=== PATIENT | female | born 1960 | race Caucasian/White ===

== ENCOUNTER 2017-03-28 05:07 | Inpatient (IN) | payer SELFPAY ==
[~2017-03-28] VITALS: Ht 162.6 cm; Wt 99.5 kg
[~2017-03-28 05:07] MED LIST: ANTIVERT25 MG PO; CELEXA40 MG PO; CLARITIN10 MG PO; DARVOCET N 1001 TAB PO; ERY TABS333 MG PO; FLAGYL500 MG PO; LANTUS SOLOS100 U/M1 SC; LISINOPRIL/HCTZ1 TA3 PO; LISINOPRIL10 MG PO; LOMOTIL 0.025 M1 TAB PO; MACROBID100 M1 PO; METFORMIN500 MG PO; MOTRIN800 MG PO; PROTONIX40 MG PO; ZANTAC150 MG; ZOFRAN4 MG PO
[2017-03-28 05:15] VITALS: BP 161/81
[2017-03-28] MEDS ORDERED: SIMVASTATIN40 MG PO (05:24)
[2017-03-28] MEDS ORDERED: NYSTATIN CREAM15 GM T (05:25)
[2017-03-28] MEDS ORDERED: MOBIC15 MG PO (05:26)
[2017-03-28] MEDS ORDERED: VIT C-ROSE HIP500 MG PO (05:27)
[2017-03-28] MEDS ORDERED: CITALOPRAM10 MG PO (05:29)
[2017-03-28] MEDS ORDERED: IBUPROFEN IV (05:31)
[2017-03-28] MEDS ORDERED: NOVOLOG FLEX100 U/ML SC (05:32)
[2017-03-28] MEDS ORDERED: LANTUS SOLOS100 U/M1 SC (05:34)
[2017-03-28 05:47] LABS: BASO % 0.3 % (0.0-1.0); EOS # 0.1 10*3/uL (0.0-0.4); EOS % 1.4 % (1.0-4.0); HEMATOCRIT 38.5 % (37.0-47.0); HEMOGLOBIN 12.8 g/dl (12.0-16.0); LYMPH # 2.7 10*3/uL (1.3-4.4); LYMPH % 40.3 % (27.0-41.0); MEAN CELL VOLUME 89.1 fl (81.0-99.0); MEAN CORPUSCULAR HGB 29.6 pg (27.0-31.0); MEAN CORPUSCULAR HGB CONC 33.2 g/dl (33.0-37.0); MEAN PLATELET VOLUME 9.8 fl (9.6-12.3); MONO # 0.4 10*3/uL (0.1-1.0); MONO % 5.3 % (3.0-9.0); NEUT # 3.5 10*3/uL (2.3-7.9); NEUT % 52.4 % (47.0-73.0); PLATELET COUNT AUTOMATED 200 10*3/uL (130-400); RED BLOOD COUNT 4.32 10*6/uL (4.10-5.10); RED CELL DISTRI WIDTH 13.6 % (0-14.5); WHITE BLOOD COUNT 6.6 10*3/uL (4.8-10.8)
[2017-03-28 05:56] LABS: ALBUMIN 3.5 gm/dl (3.1-4.5); ALKALINE PHOSPHATASE 86 U/L (45-117); BILIRUBIN, TOTAL 0.3 mg/dl (0.2-1.0); BUN 17 mg/dl (7-24); CARBON DIOXIDE 28 mmol/L (21-32); CHLORIDE 102 mmol/L (98-107); EST GLOM FILT AFRICAN AMERICAN > 60 ml/min; GLUCOSE 255 mg/dL (65-99); POTASSIUM 3.9 mmol/L (3.5-5.1); SGOT/AST 29 IU/L (3-35); SGPT/ALT 33 U/L (12-78); SODIUM 139 mmol/L (136-145); TOTAL PROTEIN 7.5 gm/dL (6.4-8.2)
[2017-03-28 07:18] VITALS: BP 156/84
[2017-03-28 08:15] VITALS: BP 144/70
[2017-03-28 10:43] LABS: BILIRUBIN NEGATIVE (NEGATIVE); BLOOD 1+ (NEGATIVE); CLARITY CLEAR (CLEAR); COLOR YELLOW (YELLOW); GLUCOSE 3+ (NEGATIVE); KETONE NEGATIVE (NEGATIVE); LEUKO ESTERASE NEGATIVE (NEGATIVE); NITRITE NEGATIVE (NEGATIVE); PH 5.5 (5.0-9.0); PROTEIN NEGATIVE (NEGATIVE); UROBILINOGEN 0.2 E.U./dl (0.2-1.0)
[2017-03-28 10:54] LABS: BACTERIA TRACE; WBC 0-2 wbc/hpf (0-5)
[2017-03-28 10:55] LABS: URINE REFLEX COMMENT YES (NO)
[2017-03-28 16:00] VITALS: BP 113/56
[2017-03-28 20:00] VITALS: BP 120/60
[2017-03-29] VITALS: BP 97/56
[2017-03-29 04:00] VITALS: BP 128/63
[2017-03-29 06:28] LABS: BASO % 0.5 % (0.0-1.0); EOS # 0.1 10*3/uL (0.0-0.4); EOS % 2.1 % (1.0-4.0); HEMATOCRIT 34.8 % (37.0-47.0); HEMOGLOBIN 11.2 g/dl (12.0-16.0); LYMPH # 2.8 10*3/uL (1.3-4.4); LYMPH % 42.7 % (27.0-41.0); MEAN CELL VOLUME 92.1 fl (81.0-99.0); MEAN CORPUSCULAR HGB 29.6 pg (27.0-31.0); MEAN CORPUSCULAR HGB CONC 32.2 g/dl (33.0-37.0); MEAN PLATELET VOLUME 10.5 fl (9.6-12.3); MONO # 0.5 10*3/uL (0.1-1.0); MONO % 6.8 % (3.0-9.0); NEUT # 3.2 10*3/uL (2.3-7.9); NEUT % 47.7 % (47.0-73.0); PLATELET COUNT AUTOMATED 185 10*3/uL (130-400); RED BLOOD COUNT 3.78 10*6/uL (4.10-5.10); RED CELL DISTRI WIDTH 13.9 % (0-14.5); WHITE BLOOD COUNT 6.6 10*3/uL (4.8-10.8)
[2017-03-29 06:44] LABS: ALBUMIN 2.9 gm/dl (3.1-4.5); BUN 12 mg/dl (7-24); CARBON DIOXIDE 29 mmol/L (21-32); CHLORIDE 107 mmol/L (98-107); CHOLESTEROL 162 mg/dL (<200); EST GLOM FILT AFRICAN AMERICAN > 60 ml/min; GLUCOSE 112 mg/dL (65-99); HDL CHOLESTEROL 37 mg/dl (40-60); MAGNESIUM 1.8 mg/dL (1.5-2.1); POTASSIUM 3.8 mmol/L (3.5-5.1); SGOT/AST 31 IU/L (3-35); SODIUM 144 mmol/L (136-145)
[2017-03-29 06:52] LABS: ALKALINE PHOSPHATASE 57 U/L (45-117); BILIRUBIN, TOTAL 0.3 mg/dl (0.2-1.0); FREE T4 0.81 ng/dl (0.76-1.46); LDL CHOLESTEROL 84 mg/dL (9-159); PHOSPHOROUS 2.6 mg/dL (2.5-4.9); PROTHROMBIN TIME 10.2 SECONDS (9.0-12.4); SGPT/ALT 34 U/L (12-78); TOTAL PROTEIN 6.2 gm/dL (6.4-8.2); TRIGLYCERIDES 206 mg/dl (<150); VLDL CHOLESTEROL 41 mg/dL (6-40)
[2017-03-29 06:57] LABS: FOLIC ACID 10.9 ng/mL (>5.38); VITAMIN D, 25-HYDROXY 13.3 ng/mL (30-100)
[2017-03-29 08:00] VITALS: BP 117/64
[2017-03-29 12:00] VITALS: BP 121/59
[2017-03-29 16:00] VITALS: BP 128/61
[2017-03-29 20:00] VITALS: BP 134/72
[2017-03-30] VITALS: BP 123/65
[2017-03-30 08:00] VITALS: BP 142/64
[2017-03-30] MEDS ORDERED: D-1000 185 MG-11 TAB PO (10:55)
[2017-03-30] MEDS ORDERED: BACTRIM DS 8001 TA1 PO (10:55)
[2017-03-30] MEDS ORDERED: FLAGYL500 MG PO (10:55)
== END 2017-03-30 12:24 | disposition home or self-care (01) | DRG 392 ==
LOC: ED 05:07 → EDHOLD 06:26 → 4E 06:26
PROVIDERS: Emergency Medicine; Internal Medicine
DX: K57.32 Diverticulitis of large intestine without perforation or abscess without bleeding (principal); E44.0 Moderate protein-calorie malnutrition; K76.0 Fatty (change of) liver, not elsewhere classified; E11.65 Type 2 diabetes mellitus with hyperglycemia; E66.9 Obesity, unspecified; F32.9 Major depressive disorder, single episode, unspecified; K21.9 Gastro-esophageal reflux disease without esophagitis; E78.5 Hyperlipidemia, unspecified; Z90.49 Acquired absence of other specified parts of digestive tract; Z88.0 Allergy status to penicillin; Z88.5 Allergy status to narcotic agent; Z87.442 Personal history of urinary calculi; Z88.1 Allergy status to other antibiotic agents; Z82.49 Family history of ischemic heart disease and other diseases of the circulatory system; Z80.51 Family history of malignant neoplasm of kidney; Z79.4 Long term (current) use of insulin; Z79.899 Other long term (current) drug therapy; Z68.39 Body mass index [BMI] 39.0-39.9, adult

== ENCOUNTER 2017-05-02 18:02 | Emergency (ER) | payer OTHER ==
[~2017-05-02] VITALS: Wt 93.0 kg
[~2017-05-02 18:02] MED LIST changes: +BACTRIM DS 8001 TA1 PO; +CITALOPRAM10 MG PO; +D-1000 185 MG-11 TAB PO; +IBUPROFEN IV; +MOBIC15 MG PO; +NOVOLOG FLEX100 U/ML SC; +NYSTATIN CREAM15 GM T; +SIMVASTATIN40 MG PO; +VIT C-ROSE HIP500 MG PO
[2017-05-05 06:10] LABS: HEPATITIS B SURFACE AB 006395 Reactive (.)
[2017-05-05 08:12] LABS: HIV 1+2 AB + HIV1 P24 AG Non Reactive (Non Reactive)
== END 2017-05-02 18:39 | disposition home or self-care (01) ==
LOC: ED 18:02
PROVIDERS: Physician Assistant
DX: S61.230A Puncture wound without foreign body of right index finger without damage to nail, initial encounter (principal); Z88.0 Allergy status to penicillin; Z88.1 Allergy status to other antibiotic agents; Z88.6 Allergy status to analgesic agent; Z79.899 Other long term (current) drug therapy; W27.3XXA Contact with needle (sewing), initial encounter; Y93.89 Activity, other specified; Y92.89 Other specified places as the place of occurrence of the external cause; Y99.8 Other external cause status

== ENCOUNTER → 2017-07-02 | Outpatient (CLI) | payer OTHER | END | disposition home or self-care (01) | LOC: MAMMO 09:55 | DX: Z12.31 Encounter for screening mammogram for malignant neoplasm of breast (principal) ==

== ENCOUNTER → 2017-07-06 | Outpatient (CLI) | payer OTHER | END | disposition home or self-care (01) | LOC: RESCLI 02:05 | DX: E11.9 Type 2 diabetes mellitus without complications (principal); R42 Dizziness and giddiness; F33.9 Major depressive disorder, recurrent, unspecified; K21.9 Gastro-esophageal reflux disease without esophagitis; E78.5 Hyperlipidemia, unspecified; E66.01 Morbid (severe) obesity due to excess calories; I10 Essential (primary) hypertension; K57.90 Diverticulosis of intestine, part unspecified, without perforation or abscess without bleeding; M51.26 Other intervertebral disc displacement, lumbar region; D49.4 Neoplasm of unspecified behavior of bladder; M65.311 Trigger thumb, right thumb; N39.41 Urge incontinence; E55.9 Vitamin D deficiency, unspecified; Z76.89 Persons encountering health services in other specified circumstances; Z79.4 Long term (current) use of insulin ==

== ENCOUNTER → 2017-07-09 | Outpatient (CLI) | payer OTHER | END | disposition home or self-care (01) | LOC: ORTHO 02:23 | DX: M65.311 Trigger thumb, right thumb (principal) ==

== ENCOUNTER → 2017-08-19 | Outpatient (CLI) | payer OTHER | LOC: RESCLI 03:59 | DX: E55.9 Vitamin D deficiency, unspecified (principal); N39.41 Urge incontinence; R42 Dizziness and giddiness; M65.311 Trigger thumb, right thumb; D49.4 Neoplasm of unspecified behavior of bladder; K21.9 Gastro-esophageal reflux disease without esophagitis; E66.01 Morbid (severe) obesity due to excess calories; F33.9 Major depressive disorder, recurrent, unspecified; E11.9 Type 2 diabetes mellitus without complications; M51.26 Other intervertebral disc displacement, lumbar region; E78.5 Hyperlipidemia, unspecified; I10 Essential (primary) hypertension; K57.90 Diverticulosis of intestine, part unspecified, without perforation or abscess without bleeding; G89.29 Other chronic pain; Z79.4 Long term (current) use of insulin; Z88.0 Allergy status to penicillin; Z88.5 Allergy status to narcotic agent ==

== ENCOUNTER 2017-11-01 18:07 | Emergency (ER) | payer OTHER ==
[2017-11-01] MEDS ORDERED: ELIMITE 5%60 GM T (19:03)
[2017-11-01 19:16] LABS: BASO % 0.4 % (0.0-1.0); EOS # 0.1 10*3/uL (0.0-0.4); EOS % 1.3 % (1.0-4.0); HEMATOCRIT 37.1 % (37.0-47.0); HEMOGLOBIN 12.6 g/dl (12.0-16.0); LYMPH # 1.7 10*3/uL (1.3-4.4); LYMPH % 23.6 % (27.0-41.0); MEAN CELL VOLUME 89.4 fl (81.0-99.0); MEAN CORPUSCULAR HGB 30.4 pg (27.0-31.0); MEAN PLATELET VOLUME 9.8 fl (9.6-12.3); MONO # 0.7 10*3/uL (0.1-1.0); MONO % 9.5 % (3.0-9.0); NEUT # 4.7 10*3/uL (2.3-7.9); NEUT % 65.1 % (47.0-73.0); PLATELET COUNT AUTOMATED 193 10*3/uL (130-400); RED BLOOD COUNT 4.15 10*6/uL (4.10-5.10); RED CELL DISTRI WIDTH 13.6 % (0-14.5); WHITE BLOOD COUNT 7.2 10*3/uL (4.8-10.8)
[2017-11-01 19:31] LABS: ALBUMIN 3.7 gm/dl (3.1-4.5); ALKALINE PHOSPHATASE 89 U/L (45-117); BUN 22 mg/dl (7-24); CHLORIDE 102 mmol/L (98-107); CREATININE 0.94 mg/dL (0.55-1.02); POTASSIUM 3.7 mmol/L (3.5-5.1); SGOT/AST 28 IU/L (3-35); SGPT/ALT 32 U/L (12-78); SODIUM 140 mmol/L (136-145); TOTAL PROTEIN 7.7 gm/dL (6.4-8.2)
[2017-11-01 19:43] LABS: BILIRUBIN NEGATIVE (NEGATIVE); BLOOD 1+ (NEGATIVE); CLARITY CLEAR (CLEAR); COLOR YELLOW (YELLOW); GLUCOSE NEGATIVE (NEGATIVE); KETONE NEGATIVE (NEGATIVE); LEUKO ESTERASE NEGATIVE (NEGATIVE); NITRITE NEGATIVE (NEGATIVE); PH 5.5 (5.0-9.0); UROBILINOGEN 0.2 E.U./dl (0.2-1.0)
[2017-11-01 19:52] LABS: BACTERIA TRACE; EPITHELIAL CELLS 0-2
[2017-11-01] MEDS ORDERED: ZITHROMAX250 MG PO (20:12)
[2017-11-01] MEDS ORDERED: PREDNISONE20 M1 PO (20:13)
[2017-11-01] MEDS ORDERED: CHERATUSSIN AC118 M1 PO (20:14)
== END 2017-11-01 20:26 | disposition home or self-care (01) ==
LOC: ED 18:07
PROVIDERS: Nurse Practitioner
DX: J40 Bronchitis, not specified as acute or chronic (principal); Z88.0 Allergy status to penicillin; Z88.6 Allergy status to analgesic agent; Z88.1 Allergy status to other antibiotic agents; Z79.4 Long term (current) use of insulin; Z79.899 Other long term (current) drug therapy; Z90.49 Acquired absence of other specified parts of digestive tract; Z90.89 Acquired absence of other organs

== ENCOUNTER 2017-11-19 18:41 | Inpatient (IN) | payer OTHER ==
[~2017-11-19] VITALS: Ht 152.4 cm; Wt 93.9 kg
[~2017-11-19 18:41] MED LIST changes: +CHERATUSSIN AC118 M1 PO; +ELIMITE 5%60 GM T; +PREDNISONE20 M1 PO; +ZITHROMAX250 MG PO
[2017-11-19 18:55] VITALS: BP 116/65
[2017-11-19 19:50] LABS: BILIRUBIN NEGATIVE (NEGATIVE); BLOOD TRACE-INTACT (NEGATIVE); CLARITY SL CLOUDY (CLEAR); COLOR YELLOW (YELLOW); GLUCOSE NEGATIVE (NEGATIVE); KETONE NEGATIVE (NEGATIVE); LEUKO ESTERASE NEGATIVE (NEGATIVE); NITRITE NEGATIVE (NEGATIVE); PH 5.5 (5.0-9.0); SPECIFIC GRAVITY 1.025 (1.005-1.030); UROBILINOGEN 0.2 E.U./dl (0.2-1.0)
[2017-11-19 19:57] LABS: BACTERIA 1+
[2017-11-19 19:58] LABS: BASO % 0.2 % (0.0-1.0); EOS # 0.1 10*3/uL (0.0-0.4); EOS % 0.9 % (1.0-4.0); HEMOGLOBIN 12.4 g/dl (12.0-16.0); LYMPH # 3.1 10*3/uL (1.3-4.4); LYMPH % 36.7 % (27.0-41.0); MEAN CELL VOLUME 88.9 fl (81.0-99.0); MEAN CORPUSCULAR HGB 29.8 pg (27.0-31.0); MEAN CORPUSCULAR HGB CONC 33.5 g/dl (33.0-37.0); MEAN PLATELET VOLUME 9.7 fl (9.6-12.3); MONO # 0.6 10*3/uL (0.1-1.0); MONO % 6.7 % (3.0-9.0); NEUT # 4.7 10*3/uL (2.3-7.9); NEUT % 55.3 % (47.0-73.0); PLATELET COUNT AUTOMATED 229 10*3/uL (130-400); RED BLOOD COUNT 4.16 10*6/uL (4.10-5.10); RED CELL DISTRI WIDTH 13.5 % (0-14.5); WHITE BLOOD COUNT 8.5 10*3/uL (4.8-10.8)
[2017-11-19 20:09] LABS: INTERNATIONAL NORM RATIO 0.9 (2.0-3.5)
[2017-11-19 20:13] VITALS: BP 136/54
[2017-11-19 20:13] LABS: ALBUMIN 3.7 gm/dl (3.1-4.5); ALKALINE PHOSPHATASE 81 U/L (45-117); BUN 13 mg/dl (7-24); CHLORIDE 104 mmol/L (98-107); CREATININE 0.96 mg/dL (0.55-1.02); LIPASE 220 U/L (73-393); POTASSIUM 3.2 mmol/L (3.5-5.1); SGOT/AST 27 IU/L (3-35); SGPT/ALT 32 U/L (12-78); SODIUM 142 mmol/L (136-145); TOTAL PROTEIN 7.8 gm/dL (6.4-8.2)
[2017-11-19 20:16] LABS: TROPONIN I < 0.015 ng/ml (<0.045)
[2017-11-19 21:34] VITALS: BP 123/65
[2017-11-19 21:55] VITALS: BP 134/72
[2017-11-20 00:27] VITALS: BP 113/64
[2017-11-20 08:00] VITALS: BP 114/66
[2017-11-20 08:35] LABS: BUN 10 mg/dl (7-24); CHLORIDE 106 mmol/L (98-107); POTASSIUM 3.9 mmol/L (3.5-5.1); SODIUM 142 mmol/L (136-145)
[2017-11-20 08:47] LABS: CHOLESTEROL 204 mg/dL (<200); CREATININE 0.87 mg/dL (0.55-1.02); HDL CHOLESTEROL 45 mg/dl (40-60); LDL CHOLESTEROL 116 mg/dL (9-159); PHOSPHOROUS 2.9 mg/dL (2.5-4.9); TRIGLYCERIDES 213 mg/dl (<150); VLDL CHOLESTEROL 43 mg/dL (6-40)
[2017-11-20 09:26] LABS: BASO % 0.3 % (0.0-1.0); EOS # 0.1 10*3/uL (0.0-0.4); HEMATOCRIT 34.9 % (37.0-47.0); HEMOGLOBIN 11.7 g/dl (12.0-16.0); LYMPH # 3.4 10*3/uL (1.3-4.4); LYMPH % 44.5 % (27.0-41.0); MEAN CELL VOLUME 91.1 fl (81.0-99.0); MEAN CORPUSCULAR HGB 30.5 pg (27.0-31.0); MEAN CORPUSCULAR HGB CONC 33.5 g/dl (33.0-37.0); MONO # 0.5 10*3/uL (0.1-1.0); MONO % 6.6 % (3.0-9.0); NEUT # 3.6 10*3/uL (2.3-7.9); NEUT % 47.5 % (47.0-73.0); PLATELET COUNT AUTOMATED 204 10*3/uL (130-400); RED BLOOD COUNT 3.83 10*6/uL (4.10-5.10); RED CELL DISTRI WIDTH 13.8 % (0-14.5); WHITE BLOOD COUNT 7.6 10*3/uL (4.8-10.8)
[2017-11-20 09:49] LABS: VITAMIN D, 25-HYDROXY 22.6 ng/mL (30-100)
[2017-11-20 12:00] VITALS: BP 98/60
[2017-11-20 16:00] VITALS: BP 124/66
[2017-11-20 20:00] VITALS: BP 138/67
[2017-11-21] VITALS: BP 149/66
[2017-11-21 06:29] LABS: BASO % 0.5 % (0.0-1.0); EOS # 0.1 10*3/uL (0.0-0.4); EOS % 2.2 % (1.0-4.0); HEMATOCRIT 34.4 % (37.0-47.0); HEMOGLOBIN 11.4 g/dl (12.0-16.0); LYMPH # 3.1 10*3/uL (1.3-4.4); LYMPH % 49.6 % (27.0-41.0); MEAN CELL VOLUME 91.7 fl (81.0-99.0); MEAN CORPUSCULAR HGB 30.4 pg (27.0-31.0); MEAN CORPUSCULAR HGB CONC 33.1 g/dl (33.0-37.0); MEAN PLATELET VOLUME 10.2 fl (9.6-12.3); MONO # 0.5 10*3/uL (0.1-1.0); MONO % 7.5 % (3.0-9.0); NEUT # 2.5 10*3/uL (2.3-7.9); PLATELET COUNT AUTOMATED 194 10*3/uL (130-400); RED BLOOD COUNT 3.75 10*6/uL (4.10-5.10); RED CELL DISTRI WIDTH 13.6 % (0-14.5); WHITE BLOOD COUNT 6.3 10*3/uL (4.8-10.8)
[2017-11-21 06:44] LABS: BUN 14 mg/dl (7-24); CHLORIDE 107 mmol/L (98-107); CREATININE 0.87 mg/dL (0.55-1.02); POTASSIUM 3.7 mmol/L (3.5-5.1); SODIUM 143 mmol/L (136-145)
[2017-11-21 08:00] VITALS: BP 130/63
[2017-11-21 12:00] VITALS: BP 151/74
== END 2017-11-21 13:59 | disposition home or self-care (01) | DRG 392 ==
LOC: ED 18:41 → EDHOLD 20:39 → 5E 20:56
PROVIDERS: Emergency Medicine Emergency Medical Services; Internal Medicine; Student in an Organized Health Care Education/Training Program
DX: K57.30 Diverticulosis of large intestine without perforation or abscess without bleeding (principal); E66.01 Morbid (severe) obesity due to excess calories; A08.4 Viral intestinal infection, unspecified; E87.6 Hypokalemia; I10 Essential (primary) hypertension; E11.9 Type 2 diabetes mellitus without complications; E78.5 Hyperlipidemia, unspecified; K21.9 Gastro-esophageal reflux disease without esophagitis; E55.9 Vitamin D deficiency, unspecified; F32.9 Major depressive disorder, single episode, unspecified; Z87.442 Personal history of urinary calculi; Z90.49 Acquired absence of other specified parts of digestive tract; Z82.49 Family history of ischemic heart disease and other diseases of the circulatory system; Z80.51 Family history of malignant neoplasm of kidney; Z88.1 Allergy status to other antibiotic agents; Z79.4 Long term (current) use of insulin; Z88.5 Allergy status to narcotic agent; Z88.0 Allergy status to penicillin; Z88.8 Allergy status to other drugs, medicaments and biological substances; Z79.899 Other long term (current) drug therapy

== ENCOUNTER → 2017-11-23 | Outpatient (CLI) | payer OTHER | END | disposition home or self-care (01) | LOC: US 09:35 | DX: K76.0 Fatty (change of) liver, not elsewhere classified (principal); Z90.49 Acquired absence of other specified parts of digestive tract ==

== ENCOUNTER → 2017-12-22 | Outpatient (CLI) | payer OTHER | END | disposition home or self-care (01) | LOC: RESCLI 01:23 | DX: Z09 Encounter for follow-up examination after completed treatment for conditions other than malignant neoplasm (principal); K57.90 Diverticulosis of intestine, part unspecified, without perforation or abscess without bleeding; R19.7 Diarrhea, unspecified; I10 Essential (primary) hypertension; K21.9 Gastro-esophageal reflux disease without esophagitis; E66.01 Morbid (severe) obesity due to excess calories; E11.9 Type 2 diabetes mellitus without complications; J45.909 Unspecified asthma, uncomplicated; R42 Dizziness and giddiness; M51.26 Other intervertebral disc displacement, lumbar region; K75.81 Nonalcoholic steatohepatitis (NASH); F32.9 Major depressive disorder, single episode, unspecified; Z90.49 Acquired absence of other specified parts of digestive tract ==

== ENCOUNTER → 2017-12-29 | Outpatient (CLI) | payer OTHER | END | disposition home or self-care (01) | LOC: LAB 09:16 → RESCLI 09:16 | DX: J02.9 Acute pharyngitis, unspecified (principal) ==

== ENCOUNTER 2018-01-18 15:12 | Emergency (ER) | payer OTHER ==
[~2018-01-18] VITALS: Ht 160 cm; Wt 96.6 kg
[2018-01-18] MEDS ORDERED: METFORMIN ER500 MG PO (15:30)
[2018-01-18 16:00] LABS: BASO % 0.6 % (0.0-1.0); EOS # 0.1 10*3/uL (0.0-0.4); EOS % 1.3 % (1.0-4.0); HEMATOCRIT 36.5 % (37.0-47.0); HEMOGLOBIN 12.3 g/dl (12.0-16.0); LYMPH # 2.7 10*3/uL (1.3-4.4); MEAN CELL VOLUME 89.5 fl (81.0-99.0); MEAN CORPUSCULAR HGB 30.1 pg (27.0-31.0); MEAN CORPUSCULAR HGB CONC 33.7 g/dl (33.0-37.0); MONO # 0.5 10*3/uL (0.1-1.0); MONO % 7.4 % (3.0-9.0); NEUT # 3.6 10*3/uL (2.3-7.9); NEUT % 51.4 % (47.0-73.0); PLATELET COUNT AUTOMATED 191 10*3/uL (130-400); RED BLOOD COUNT 4.08 10*6/uL (4.10-5.10); RED CELL DISTRI WIDTH 13.3 % (0-14.5)
[2018-01-18 16:21] LABS: ALBUMIN 3.4 gm/dl (3.1-4.5); ALKALINE PHOSPHATASE 101 U/L (45-117); BUN 18 mg/dl (7-24); CHLORIDE 103 mmol/L (98-107); CREATININE 1.07 mg/dL (0.55-1.02); POTASSIUM 4.1 mmol/L (3.5-5.1); SGOT/AST 23 IU/L (3-35); SGPT/ALT 31 U/L (12-78); SODIUM 139 mmol/L (136-145); TOTAL PROTEIN 7.3 gm/dL (6.4-8.2); TROPONIN I < 0.015 ng/ml (<0.045)
[2018-01-18] MEDS ORDERED: ZITHROMAX250 MG PO (17:06)
[2018-01-18] MEDS ORDERED: DELTASONE20 M1 PO (17:06)
== END 2018-01-18 17:14 | disposition home or self-care (01) ==
LOC: ED 15:12
PROVIDERS: Emergency Medicine
DX: J40 Bronchitis, not specified as acute or chronic (principal); K21.9 Gastro-esophageal reflux disease without esophagitis; E78.5 Hyperlipidemia, unspecified; I10 Essential (primary) hypertension; E66.01 Morbid (severe) obesity due to excess calories; E11.9 Type 2 diabetes mellitus without complications; Z90.49 Acquired absence of other specified parts of digestive tract; Z98.890 Other specified postprocedural states; Z88.0 Allergy status to penicillin; Z88.8 Allergy status to other drugs, medicaments and biological substances; Z88.1 Allergy status to other antibiotic agents; Z79.4 Long term (current) use of insulin

== ENCOUNTER → 2018-01-27 | Outpatient (CLI) | payer OTHER ==
[~2018-01-27] MED LIST changes: +DELTASONE20 M1 PO; +METFORMIN ER500 MG PO
--- NOTE | ~2018-01-27 | PF ---
[place], [place] PULMONARY FUNCTION TEST NAME: TITI MIRANDA UNIT #: [id number] ROOM: DOCTOR: MITRA DEAL MD,CUATE BIRTHDATE: [birth year] DOS: 01/27/2018 The testing was done on 01/27/2018. The testing was ordered from my office. HISTORY: The patient is a 57-year-old female, height of 62 inches, weight of 210 pounds, BMI of 38.4. The patient's testing was done for assessment of symptoms of shortness breath for this patient with a past diagnosis reported for COPD. Tobacco use noted for 5 years of tobacco use in the past. The patient has now being smoking cigarettes for 32 years. SPIROMETRY: The FVC recorded as 3.09 liters as 103% predicted, value normal. The FEV1 noted 2.77 liters at 117% predicted value normal. Ratio of FEV1/FVC was recorded 80%. Post-bronchodilator, no changes for this patient were noted. Flow volume loop was reviewed for this patient is essentially noted normal. The lung volumes, thoracic gas volume recorded as 85%, residual volume 95%, total lung capacity 100%. Lung volumes were noted normal. The patient's lung diffusion noted normal at 101%. The patient's airway resistance and passive conductance were noted normal. FINAL IMPRESSION: Normal pulmonary function test for this patient was noted. The study finding to be correlated with patient's clinical history and physical examination. CUATE MANRIQUEZ MD CM:PFREPORT:PULMONARY FUNCTION TEST 1415 CUATE DEAL MD
== END | disposition home or self-care (01) ==
LOC: CP 06:59
DX: J44.9 Chronic obstructive pulmonary disease, unspecified (principal)

== ENCOUNTER → 2018-04-28 | Outpatient (CLI) | payer OTHER ==
[~2018-04-28] MED LIST changes: +HYDROCHLOROTH12.5 M2 PO
== END | disposition home or self-care (01) ==
LOC: RESCLI 04:08
DX: K43.9 Ventral hernia without obstruction or gangrene (principal); E11.65 Type 2 diabetes mellitus with hyperglycemia; R00.2 Palpitations; R68.89 Other general symptoms and signs; I10 Essential (primary) hypertension; E55.9 Vitamin D deficiency, unspecified; K44.9 Diaphragmatic hernia without obstruction or gangrene; J30.2 Other seasonal allergic rhinitis; Z79.899 Other long term (current) drug therapy; Z79.4 Long term (current) use of insulin; Z88.8 Allergy status to other drugs, medicaments and biological substances

== ENCOUNTER → 2018-04-29 | Outpatient (CLI) | payer OTHER ==
[2018-04-29 08:19] LABS: BASO % 0.5 % (0.0-1.0); EOS # 0.1 10*3/uL (0.0-0.4); HEMATOCRIT 38.1 % (37.0-47.0); HEMOGLOBIN 12.4 g/dl (12.0-16.0); LYMPH # 2.7 10*3/uL (1.3-4.4); LYMPH % 42.3 % (27.0-41.0); MEAN CELL VOLUME 90.3 fl (81.0-99.0); MEAN CORPUSCULAR HGB 29.4 pg (27.0-31.0); MEAN CORPUSCULAR HGB CONC 32.5 g/dl (33.0-37.0); MEAN PLATELET VOLUME 9.9 fl (9.6-12.3); MONO # 0.6 10*3/uL (0.1-1.0); MONO % 9.4 % (3.0-9.0); NEUT # 2.9 10*3/uL (2.3-7.9); NEUT % 45.5 % (47.0-73.0); PLATELET COUNT AUTOMATED 210 10*3/uL (130-400); RED BLOOD COUNT 4.22 10*6/uL (4.10-5.10); RED CELL DISTRI WIDTH 13.8 % (0-14.5); WHITE BLOOD COUNT 6.4 10*3/uL (4.8-10.8)
[2018-04-29 08:49] LABS: ALBUMIN 3.5 gm/dl (3.1-4.5); BUN 16 mg/dl (7-24); CHLORIDE 104 mmol/L (98-107); POTASSIUM 3.4 mmol/L (3.5-5.1); SODIUM 140 mmol/L (136-145)
[2018-04-29 09:01] LABS: ALKALINE PHOSPHATASE 74 U/L (45-117); CHOLESTEROL 202 mg/dL (<200); CREATININE 0.99 mg/dL (0.55-1.02); HDL CHOLESTEROL 35 mg/dl (40-60); LDL CHOLESTEROL 104 mg/dL (9-159); SGOT/AST 31 IU/L (3-35); SGPT/ALT 37 U/L (12-78); TOTAL PROTEIN 7.4 gm/dL (6.4-8.2); TRIGLYCERIDES 317 mg/dl (<150); VLDL CHOLESTEROL 63 mg/dL (6-40)
[2018-04-29 09:20] LABS: FREE T4 0.79 ng/dl (0.76-1.46)
== END | disposition home or self-care (01) ==
LOC: NM 04-05 07:00 → LAB 07:45 → NM 08:00
PROVIDERS: Student in an Organized Health Care Education/Training Program
DX: E11.65 Type 2 diabetes mellitus with hyperglycemia (principal); R68.81 Early satiety; E55.9 Vitamin D deficiency, unspecified; R00.2 Palpitations

== ENCOUNTER → 2018-05-05 | Outpatient (CLI) | payer OTHER | END | disposition home or self-care (01) | LOC: US 02:04 | DX: E11.65 Type 2 diabetes mellitus with hyperglycemia (principal); I10 Essential (primary) hypertension; E04.2 Nontoxic multinodular goiter; R00.2 Palpitations; R68.89 Other general symptoms and signs; R06.09 Other forms of dyspnea; R53.81 Other malaise; R06.02 Shortness of breath ==

== ENCOUNTER → 2018-05-18 | Outpatient (CLI) | payer OTHER | END | disposition home or self-care (01) | LOC: CARD 01:40 | DX: R00.2 Palpitations (principal); R06.09 Other forms of dyspnea; R68.89 Other general symptoms and signs ==

== ENCOUNTER → 2018-07-07 | Outpatient (CLI) | payer OTHER ==
[~2018-07-07] MED LIST changes: +BYDUREON2 M1 SQ; +CELEXA20 MG PO; +CRANBERRY400 M1 PO; +LIPITOR20 MG PO; +MOTION RELIEF25 M2 PO; +NOVOLOG FL100 UNIT/1 SQ; -NOVOLOG FLEX100 U/ML SC; +THYROID PILL; +UNITHROID150 MCG PO
[2018-07-07 11:02] LABS: FREE T4 1.99 ng/dl (0.76-1.46)
== END | disposition home or self-care (01) ==
LOC: RESCLI 00:22
PROVIDERS: Internal Medicine
DX: F33.9 Major depressive disorder, recurrent, unspecified (principal); R13.10 Dysphagia, unspecified; K21.9 Gastro-esophageal reflux disease without esophagitis; E78.5 Hyperlipidemia, unspecified; I10 Essential (primary) hypertension; E55.9 Vitamin D deficiency, unspecified; E66.01 Morbid (severe) obesity due to excess calories; E11.65 Type 2 diabetes mellitus with hyperglycemia; J30.2 Other seasonal allergic rhinitis; E03.9 Hypothyroidism, unspecified; Z79.4 Long term (current) use of insulin; Z79.899 Other long term (current) drug therapy; Z88.0 Allergy status to penicillin; Z88.8 Allergy status to other drugs, medicaments and biological substances

== ENCOUNTER → 2018-07-14 | Outpatient (CLI) | payer OTHER ==
--- NOTE | ~2018-07-14 | SLPPN ---
[place], [place] BATTERY TESTER FIELD PROGRESS NOTE NAME: TITI MIRANDA UNIT #: [id number] ROOM: DOCTOR: ZAIDA ALVARENGA DO Speech Language Pathology Treatment Note Page 1 1 of Patient Name: TITI MIRANDA Date: 07/14/2018 10:53 AM : 1960 SOC Date: 07/14/2018 [facility] Provider #: [id number] Treating Clinician: MARTINA Hewitt-BATTERY TESTER FIELD Referring Physician: ZAIDA ALVARENGA Onset Date Description Code Primary Diagnosis: 07/14/2018 A0000 NO DIAGNOSIS SENT TO THE [facility] Time In: 09:30 AM Time Out: 10:30 AM BATTERY TESTER FIELD Interventions and CPT Codes Consisted of: CPT Code Modifiers Minutes Units MOTION FLUOROSCOPY/SWALLOW 91706 60 1 Total Minutes: 60 Total Timed Minutes: 0 Total Untimed Minutes: 60 Total Units: 1 Total Timed Units: 0 Total Untimed Units: 1 07/14/2018 10:53:48 AM MARTINA Hewitt-BATTERY TESTER FIELD Date/Time State License #: [id number] CM:JOSHUA [id number] IS [facility]
--- NOTE | ~2018-07-14 | SLPPOC ---
[place], [place] SHOTWELD OPERATOR PLAN OF CARE NAME: TITI MIRANDA UNIT #: [id number] ROOM: DOCTOR: ZAIDA ALVARENGA DO Speech Language Pathology Plan of Care Page 1 1 (Initial Evaluation) of Patient Name: TITI MIRANDA Date: 07/14/2018 10:51 AM : 1960 SOC Date: 07/14/2018 [facility]: [facility] Provider #: [id number] Treating Clinician: MARTINA Hewitt-VISHAL Referring Physician: ZAIDA ALVARENGA 1 Visits From SOC: Onset Date Description Code Primary Diagnosis: 07/14/2018 A0000 NO DIAGNOSIS SENT TO THE [facility] Subjective Comments: Initial evaluation created to initiate the electronic medical record. Please see OmniStrat for details. Initial Level Goals Functional Limitation Reporting Swallowing G8996 - Swallowing functional limitation, current status at therapy episode outset and at reporting intervals Current Status: CH - 0 percent impaired, limited or restricted G8997 - Swallowing functional limitation, projected goal status, at therapy episode outset, at reporting intervals, and at discharge or to end reporting Goal Status: CH - 0 percent impaired, limited or restricted G8998 - Swallowing functional limitation, discharge status, at discharge from therapy or to end reporting Discharge Status: CH - 0 percent impaired, limited or restricted 07/14/2018 10:52:55 AM ZAIDA ALVARENGA Date/Time MERRITT Hewitt Date I certify the need for these services furnished under this plan of treatment while under my care. State License #: [id number] CM:SLPPOC [id number] 1056 IS THERAPY [facility]
--- NOTE | ~2018-07-14 | PROC NOTE ---
[place], [place] PROCEDURE NOTE NAME: TITI MIRANDA UNIT #: [id number] ROOM: DOCTOR: MARIAJOSE OSORIO BIRTHDATE: [birth year] DOS: 07/14/2018 MODIFIED BARIUM SWALLOW ORDERING PHYSICIAN: Dr. Perry Cook. RADIOLOGIST: Dr. Avila. BACKGROUND INFORMATION: The patient a 57-year-old female who was seen for modified barium swallow. This test was ordered to view the pharyngeal phase of the swallow. The patient was alert, cooperative and reported experiencing choking with foods and pain in swallowing over the past 6 months. MEDICAL HISTORY: Significant for thyroid nodules, diverticulosis and GERD. The patient currently consumes a regular diet and thin liquids. For today's assessment, she was alert and able to follow all commands. Respiratory status was within normal limits. Oral peripheral examination revealed presence of upper denture only, with no teeth on the bottom. Lingual, labial, and buccal skills were within normal limits in terms of strength, range of motion, and coordination. The patient was able to volitionally cough and swallow. METHODS AND MATERIALS USED FOR THE EXAM: The patient was positioned in the lateral plane and the exam was viewed under fluoroscopy. The patient was presented with a variety of consistencies to assess swallowing skills including applesauce mixed with barium presented in half teaspoon amounts, barium-coated cookie and sandwich given in bite size pieces and thin liquid barium taken by cup and straw. ORAL PHASE: Unremarkable. PHARYNGEAL PHASE: Unremarkable. ESOPHAGEAL PHASE: This phase of the swallow was not formally assessed during this exam. IMPRESSIONS AND RECOMMENDATIONS: Based upon assessment results, this 57-year-old female presents with oral and pharyngeal swallowing skills within normal limits with all consistencies. The patient denied any pain when swallowing during this assessment. Recommend she remain on regular diet with use of safe swallow precautions such as small bites and sips, chewing thoroughly and following reflux precautions. She verbalized understanding of all information provided. Follow up therapy is not warranted at this time. Thank you very much for this referral. Should you have any questions regarding this patient, please contact the speech pathologist at [phone]. [place], [place] PROCEDURE NOTE NAME: TITI MIRANDA UNIT #: [id number] ROOM: DOCTOR: MARIAJOSE OSORIO BIRTHDATE: [birth year] MARIAJOSE OSORIO CM:PROCNOTE:PROCEDURE NOTE 1102 [id number] MARIAJOSE OSORIO
--- NOTE | ~2018-07-14 | SLPIE ---
[place], [place] DIRECTOR OF PULMONARY UNIT INITIAL EVALUATION NAME: TITI MIRANDA UNIT #: [id number] ROOM: DOCTOR: ZAIDA ALVARENGA DO Speech Language Pathology Initial Evaluation Page 1 1 of Patient Name: TITI MIRANDA Date: 07/14/2018 10:51 AM : 1960 SOC Date: 07/14/2018 [facility] Provider #: [id number] Treating Clinician: MARTINA Hewitt-DIRECTOR OF PULMONARY UNIT Referring Physician: ZAIDA ALVARENGA Patient Information Address: [address] [place] [address] Physician: ZAIDA ALVARENGA Physician #: [facility], [facility], Zip: [place], [place] [address] Occupation: Unknown # of Approved Visits: 0 Gender: Female Clay Pigeon Setter: FRANCESCO MIRANDA Rehabilitation Information / History Onset Date Code Description Primary Diagnosis: 07/14/2018 A0000 NO DIAGNOSIS SENT TO THE [facility] Subjective Comments: Initial evaluation created to initiate the electronic medical record. Please see imoji for details. Rehabilitation Information / History Clinical Findings Functional Goals Functional Limitation Reporting Swallowing G8996 - Swallowing functional limitation, current status at therapy episode outset and at reporting intervals Current Status: CH - 0 percent impaired, limited or restricted G8997 - Swallowing functional limitation, projected goal status, at therapy episode outset, at reporting intervals, and at discharge or to end reporting Goal Status: CH - 0 percent impaired, limited or restricted G8998 - Swallowing functional limitation, discharge status, at discharge from therapy or to end reporting Discharge Status: CH - 0 percent impaired, limited or restricted 07/14/2018 10:52:55 AM MARTINA Hewitt-DIRECTOR OF PULMONARY UNIT Date/Time [place], [place] DIRECTOR OF PULMONARY UNIT INITIAL EVALUATION NAME: TITI MIRANDA UNIT #: [id number] ROOM: DOCTOR: ZAIDA ALVARENGA DO [facility] License #: [id number] CM:SLPIE 105 IS THERAPY [facility]
== END | disposition home or self-care (01) ==
LOC: RAD/SH 09:30
DX: M47.892 Other spondylosis, cervical region (principal); R13.10 Dysphagia, unspecified

== ENCOUNTER 2018-07-30 18:35 | Inpatient (IN) | payer OTHER ==
[~2018-07-30] VITALS: Ht 157.5 cm; Wt 90.8 kg
--- NOTE | ~2018-07-30 | EKG ---
[place], [place] ELECTROCARDIOGRAM REPORT NAME: TITI MIRANDA UNIT #: [id number] ROOM: 531 DOCTOR: PAMELA DRAFT REPORT BIRTHDATE: [birth year] [facility] Test Date: 2018-07-30 Test Time: 18:40:37 Pat Name: TITI MIRANDA Department: ER Room: 531 Gender: F Web Press Operator: : 1960 Requested By: RENA GAMBLE Order Number: [id number] Reading MD: Osito Villareal MD Measurements Intervals [place] Rate: 81 P: 65 [place]: 141 QRS: 42 QRSD: 91 T: 32 QT: 366 QTc: 425 Interpretive Statements Sinus rhythm Compared to ECG 06/02/2018 10:19:52 No significant changes Electronically Signed On 08-02-2018 8:41:21 PDT by Osiot Villareal MD CM:EKGRPT:ELECTROCARDIOGRAM REPORT [id number] RENA PEACE DRAFT REPORT RENA GAMBLE DO
--- NOTE | ~2018-07-30 | CON ---
[place], [place] REPORT OF CONSULTATION [id number] UNIT #: [id number] ROOM: 531 DOCTOR: TONYA POWELL MD BIRTHDATE: [birth year] DOS: 07/31/2018 CARDIOLOGY CONSULTATION REASON FOR CONSULTATION: Chest pain. HISTORY OF PRESENT ILLNESS: The patient was seen at her bedside today, 07/31/2018, with her in attendance. She is a 57-year-old woman who has a long history of diabetes mellitus, on insulin. Her diabetes is complicated by gastroparesis. She has no personal history of myocardial infarction or stroke. She does have hypertension and hyperlipidemia along with obesity. She was in her normal state of health until 07/30/2018. While watching a volleyball game, she felt strangely. She checked her sugar and found that it was low at 66. She ate a couple of Santiago's cups. She then became nauseous and vomited several times. She stated that it was fairly violent vomiting. It was associated with some diarrhea as well. Associated with this, she did develop severe pain in the center of her chest radiating into her back. The pain persisted quite some time and was severe, so she presented to the Emergency Room. Her initial electrocardiogram showed no acute ST or T-wave changes. She was given a GI cocktail and nitroglycerin paste and her symptoms improved, but did not resolve. They gradually decreased over the next several hours and resolved spontaneously in about 5 hours from the onset of the pain. Serial electrocardiograms showed no changes. Her initial troponin level was normal at 0.015, however, her subsequent troponin levels ezekiel to as high as 0.098 and then fell to 0.073. PAST MEDICAL HISTORY: Includes: 1. Type 2 diabetes mellitus requiring insulin. 2. Essential hypertension. 3. Mixed hyperlipidemia. 4. Gastroesophageal reflux disease. 5. Diabetic gastroparesis. The patient had a gastric emptying study on 04/30/2018, which showed prolonged emptying. The T1 half was measured at 173 minutes with normal being 60+ or -30 minutes. 6. Echocardiogram 05/18/2018, normal left ventricular systolic and diastolic function with ejection fraction between 60% and 65%, normal left atrial size, normal valves, normal examination. 7. Pharmacologic myocardial perfusion study utilizing regadenoson 05/05/2018 normal perfusion, ejection fraction 86%, low-risk study. FAMILY HISTORY: The patient's father did have coronary artery disease in the 4-vessel bypass when he was 55 years of age. He of a heart attack in his early 70s. Her mother had atrial fibrillation. PAST SURGICAL HISTORY: Positive for cholecystectomy and tonsillectomy. MEDICATIONS: Prior to admission, atorvastatin 20 mg at bedtime, citalopram 10 mg daily, cranberry 400 mg daily, hydrochlorothiazide 12.5 mg daily, levothyroxine 150 mcg daily, lisinopril 10 mg daily, meclizine 25 mg daily, [place], [place] REPORT OF CONSULTATION NAME: TITI MIRANDA UNIT #: [id number] ROOM: 531 DOCTOR: TONYA POWELL MD BIRTHDATE: [birth year] metformin 750 mg b.i.d., pantoprazole 40 mg daily, Lantus insulin 70 units at bedtime. Bydureon 2 mg subcutaneously weekly, NovoLog insulin 28-30 units subcutaneously b.i.d. and ranitidine 150 mg b.i.d. ALLERGIES: The patient lists allergies to PENICILLINS, QUINOLONES, CODEINE, ERYTHROMYCIN and MOXIFLOXACIN. REVIEW OF SYSTEMS: The patient denies diplopia or loss of vision. She denies lightheadedness or syncope. She denies fevers, chills, sweats or recent weight change. She denies focal weakness. She did have nausea and vomiting as noted above. She did have chest pain as noted above. She denies hemoptysis or hematemesis. She denied change in bowel or bladder habits, although she did have diarrhea during the episode of vomiting. She denied blood in her stools or urine. She denied any skin rashes. She denied any peripheral edema. She denied any history of blood clots. She denies heat or cold intolerance. She denies polyuria or polydipsia. Remainder of the review of systems is negative except as noted above. SOCIAL HISTORY: The patient is and lives with her . She has never smoked. PHYSICAL EXAMINATION: GENERAL: The patient is an overweight white female who is awake, alert and oriented. VITAL SIGNS: Pulse is 76 and regular, blood pressure 113/54. She weighs 90.8 kg and has a body mass index 36.6. HEENT: Normocephalic, atraumatic. Extraocular muscles are intact. Sclerae are clear. Pupils equal, round and react to light. The oral mucosa is moist. Tongue is midline. NECK: Supple. She has no jugular distention. Carotids are full. There are no bruit. She has no neck or supraclavicular masses, no thyromegaly. LUNGS: Respirations are unlabored. Her chest is clear to auscultation and percussion. She has no presacral edema or chest wall tenderness. CARDIOVASCULAR: Has a regular rhythm. She has a soft S4 gallop, but no S3 or murmur. The PMI is not displaced. There is no precordial heave, lift or thrill. ABDOMEN: Soft and normally active. It is not tender. I could not reproduce her pains by palpation of the chest or abdomen. She has no mass or rebound. EXTREMITIES: Showed no clubbing, cyanosis or edema. There are no palpable cords or Homans sign. Pedal pulses are easily palpated in the feet bilaterally. LABORATORY DATA: I reviewed her electrocardiograms. She did have serial electrocardiograms, which showed sinus rhythm and were otherwise normal. Troponin levels are minimally elevated as noted above. Hemoglobin is 12.0, hematocrit 36.5, white count 9700, platelet count 205,000. Sodium 143, potassium 4.0, chloride 104, CO2 31, BUN 11, creatinine 0.82. Total cholesterol is 151, LDL 78, HDL 38, triglycerides 174. IMPRESSIONS: 1. Atypical chest pain, most likely caused by severe vomiting and acid reflux. [place], [place] REPORT OF CONSULTATION NAME: TITI MIRANDA UNIT #: [id number] ROOM: 531 DOCTOR: TONYA POWELL MD BIRTHDATE: [birth year] 2. Minimal elevation in troponin, probably caused by severe vomiting. The pattern does not suggest the presence of an acute coronary syndrome or myocardial infarction. 3. Type 2 diabetes mellitus, on insulin. 4. Essential hypertension. 5. Hyperlipidemia. PLAN: No other cardiac workup is planned at this time. The patient did have a stress test within the last 3 months, which was low risk and her EKG shows no acute changes. She should continue her efforts to control her diabetes and weight. We will remain available as needed. I thank the hospitalist physicians for asking our advice regarding her care. TONYA POWELL MD CM:CONSTR:REPORT OF CONSULTATION 151 07/31/181955 interface
--- NOTE | ~2018-07-30 | EKG ---
[place], [place] ELECTROCARDIOGRAM REPORT NAME: TITI MIRANDA UNIT #: [id number] ROOM: 531 DOCTOR: PAMELA DRAFT REPORT BIRTHDATE: [birth year] [facility] Test Date: 2018-07-30 Test Time: 21:44:32 Pat Name: TITI MIRANDA Department: Room: 531 Gender: F Transition Coach: EKG.OK : 1960 Requested By: RENA GAMBLE Order Number: [id number] Reading MD: Osito Villareal MD Measurements Intervals [place] Rate: 71 P: 68 RI: 153 QRS: 35 QRSD: 81 T: 41 QT: 367 QTc: 399 Interpretive Statements Sinus rhythm Abnormal R-wave progression, early transition Compared to ECG 06/02/2018 10:19:52 No significant changes Electronically Signed On 08-02-2018 8:41:41 PDT by Osito Villareal MD CM:EKGRPT:ELECTROCARDIOGRAM REPORT 0841 RENA PEACE DRAFT REPORT RENA AGMBLE DO
--- NOTE | ~2018-07-30 | EKG ---
[place], [place] ELECTROCARDIOGRAM REPORT NAME: TITI MIRANDA UNIT #: [id number] ROOM: 531 DOCTOR: PAMELA DRAFT REPORT BIRTHDATE: [birth year] [facility] Test Date: 2018-07-31 Test Time: 00:49:21 Pat Name: TITI MIRANDA Department: Room: 531 Gender: F Claims Clerk: : 1960 Requested By: RENA GAMBLE Order Number: [id number] Reading MD: Osito Villareal MD Measurements Intervals [place] Rate: 73 P: 53 [place]: 151 QRS: 23 QRSD: 82 T: 32 QT: 368 QTc: 406 Interpretive Statements Sinus rhythm Abnormal R-wave progression, early transition Compared to ECG 06/02/2018 10:19:52 No significant changes Electronically Signed On 08-02-2018 8:41:48 PDT by Osito Villareal MD CM:EKGRPT:ELECTROCARDIOGRAM REPORT 0049 0841 RENA PEACE DRAFT REPORT RENA GAMBLE DO
[~2018-07-30 18:35] MED LIST changes: -BYDUREON2 M1 SQ; -CELEXA20 MG PO; -CRANBERRY400 M1 PO; -LIPITOR20 MG PO; -MOTION RELIEF25 M2 PO; -THYROID PILL; -UNITHROID150 MCG PO
[2018-07-30 18:38] VITALS: BP 166/77
[2018-07-30 18:50] LABS: BASO # 0.1 10*3/uL (0.0-0.1); BASO % 0.4 % (0.0-1.0); EOS # 0.1 10*3/uL (0.0-0.4); EOS % 0.6 % (1.0-4.0); HEMATOCRIT 39.3 % (37.0-47.0); HEMOGLOBIN 13.4 g/dl (12.0-16.0); LYMPH # 3.3 10*3/uL (1.3-4.4); LYMPH % 22.5 % (27.0-41.0); MEAN CELL VOLUME 87.7 fl (81.0-99.0); MEAN CORPUSCULAR HGB 29.9 pg (27.0-31.0); MEAN CORPUSCULAR HGB CONC 34.1 g/dl (33.0-37.0); MEAN PLATELET VOLUME 9.8 fl (9.6-12.3); MONO # 0.9 10*3/uL (0.1-1.0); MONO % 6.1 % (3.0-9.0); NEUT # 10.1 10*3/uL (2.3-7.9); NEUT % 69.8 % (47.0-73.0); PLATELET COUNT AUTOMATED 233 10*3/uL (130-400); RED BLOOD COUNT 4.48 10*6/uL (4.10-5.10); WHITE BLOOD COUNT 14.4 10*3/uL (4.8-10.8)
[2018-07-30] MEDS ORDERED: THYROID PILL (19:00)
[2018-07-30 19:01] LABS: ACT PARTIAL THROMBO TIME 19.8 SECONDS (20.8-31.5); INTERNATIONAL NORM RATIO 0.9 (2.0-3.5)
[2018-07-30 19:06] VITALS: BP 131/60
[2018-07-30 19:08] LABS: ALBUMIN 3.8 gm/dl (3.1-4.5); ALKALINE PHOSPHATASE 88 U/L (45-117); BUN 14 mg/dl (7-24); CHLORIDE 106 mmol/L (98-107); CREATININE 0.96 mg/dL (0.55-1.02); POTASSIUM 3.4 mmol/L (3.5-5.1); SGOT/AST 20 IU/L (3-35); SGPT/ALT 27 U/L (12-78); SODIUM 142 mmol/L (136-145)
[2018-07-30 19:16] LABS: TROPONIN I < 0.015 ng/ml (<0.045)
[2018-07-30 19:30] VITALS: BP 137/61
[2018-07-30 19:53] VITALS: BP 117/57
[2018-07-30 20:23] VITALS: BP 128/64
[2018-07-30] MEDS ORDERED: LIPITOR20 MG PO (20:44)
[2018-07-30] MEDS ORDERED: CELEXA20 MG PO (20:47)
[2018-07-30] MEDS ORDERED: UNITHROID150 MCG PO (22:42)
[2018-07-30] MEDS ORDERED: BYDUREON2 M1 SQ (22:42)
[2018-07-30] MEDS ORDERED: MOTION RELIEF25 M2 PO (22:45)
[2018-07-30] MEDS ORDERED: CRANBERRY400 M1 PO (22:46)
[2018-07-31] VITALS: BP 106/50
[2018-07-31 05:58] LABS: BASO % 0.3 % (0.0-1.0); EOS # 0.1 10*3/uL (0.0-0.4); EOS % 1.2 % (1.0-4.0); HEMATOCRIT 36.5 % (37.0-47.0); LYMPH # 2.6 10*3/uL (1.3-4.4); LYMPH % 26.9 % (27.0-41.0); MEAN CELL VOLUME 89.2 fl (81.0-99.0); MEAN CORPUSCULAR HGB 29.3 pg (27.0-31.0); MEAN CORPUSCULAR HGB CONC 32.9 g/dl (33.0-37.0); MEAN PLATELET VOLUME 9.9 fl (9.6-12.3); MONO # 0.7 10*3/uL (0.1-1.0); MONO % 7.5 % (3.0-9.0); NEUT # 6.2 10*3/uL (2.3-7.9); NEUT % 63.9 % (47.0-73.0); PLATELET COUNT AUTOMATED 205 10*3/uL (130-400); RED BLOOD COUNT 4.09 10*6/uL (4.10-5.10); RED CELL DISTRI WIDTH 13.1 % (0-14.5); WHITE BLOOD COUNT 9.7 10*3/uL (4.8-10.8)
[2018-07-31 06:08] LABS: ALBUMIN 3.3 gm/dl (3.1-4.5); ALKALINE PHOSPHATASE 72 U/L (45-117); BUN 11 mg/dl (7-24); CHLORIDE 104 mmol/L (98-107); CHOLESTEROL 151 mg/dL (<200); CREATININE 0.82 mg/dL (0.55-1.02); HDL CHOLESTEROL 38 mg/dl (40-60); LDL CHOLESTEROL 78 mg/dL (9-159); PHOSPHOROUS 2.9 mg/dL (2.5-4.9); SGOT/AST 16 IU/L (3-35); SGPT/ALT 23 U/L (12-78); SODIUM 143 mmol/L (136-145); TOTAL PROTEIN 7.3 gm/dL (6.4-8.2); TRIGLYCERIDES 174 mg/dl (<150); VLDL CHOLESTEROL 35 mg/dL (6-40)
[2018-07-31 06:12] LABS: TROPONIN I 0.073 ng/ml (<0.045)
[2018-07-31 06:14] LABS: THYROID STIM HORMONE (HS) 0.011 uIU/ml (0.358-4.75)
[2018-07-31 08:00] VITALS: BP 102/42
[2018-07-31 12:00] VITALS: BP 113/54
[2018-08-02 16:42] LABS: VITAMIN D, 25-HYDROXY 68.9 ng/mL (30-100)
== END 2018-07-31 16:03 | disposition home or self-care (01) | DRG 392 ==
LOC: ED 18:35 → EDHOLD 19:39 → 5E 19:55
PROVIDERS: Emergency Medicine; Internal Medicine; Student in an Organized Health Care Education/Training Program
DX: K21.9 Gastro-esophageal reflux disease without esophagitis (principal); E66.01 Morbid (severe) obesity due to excess calories; E11.43 Type 2 diabetes mellitus with diabetic autonomic (poly)neuropathy; F32.9 Major depressive disorder, single episode, unspecified; R11.10 Vomiting, unspecified; D72.829 Elevated white blood cell count, unspecified; D72.9 Disorder of white blood cells, unspecified; E87.6 Hypokalemia; E78.2 Mixed hyperlipidemia; E55.9 Vitamin D deficiency, unspecified; K31.84 Gastroparesis; I10 Essential (primary) hypertension; Z88.0 Allergy status to penicillin; Z88.5 Allergy status to narcotic agent; Z79.4 Long term (current) use of insulin; Z88.1 Allergy status to other antibiotic agents; Z88.8 Allergy status to other drugs, medicaments and biological substances; Z79.899 Other long term (current) drug therapy; Z90.49 Acquired absence of other specified parts of digestive tract; Z87.442 Personal history of urinary calculi; Z87.440 Personal history of urinary (tract) infections; Z82.49 Family history of ischemic heart disease and other diseases of the circulatory system; Z83.3 Family history of diabetes mellitus; Z80.51 Family history of malignant neoplasm of kidney; Z68.36 Body mass index [BMI] 36.0-36.9, adult

== ENCOUNTER → 2018-08-19 | Outpatient (CLI) | payer OTHER ==
[~2018-08-19] MED LIST changes: +BYDUREON2 M1 SQ; +CELEXA20 MG PO; +CRANBERRY400 M1 PO; +LIPITOR20 MG PO; +MOTION RELIEF25 M2 PO; +THYROID PILL; +UNITHROID150 MCG PO
[2018-08-19 12:50] LABS: FREE T4 1.88 ng/dl (0.76-1.46)
== END | disposition home or self-care (01) ==
LOC: LAB 11:09
PROVIDERS: Internal Medicine
DX: E03.9 Hypothyroidism, unspecified (principal)

== ENCOUNTER → 2018-08-26 | Outpatient (CLI) | payer OTHER | END | disposition home or self-care (01) | LOC: RESCLI 08:08 | DX: F33.9 Major depressive disorder, recurrent, unspecified (principal); K31.84 Gastroparesis; K21.9 Gastro-esophageal reflux disease without esophagitis; E78.5 Hyperlipidemia, unspecified; I10 Essential (primary) hypertension; G89.29 Other chronic pain; E66.01 Morbid (severe) obesity due to excess calories; E11.65 Type 2 diabetes mellitus with hyperglycemia; J30.2 Other seasonal allergic rhinitis; E03.9 Hypothyroidism, unspecified; K76.0 Fatty (change of) liver, not elsewhere classified; R10.12 Left upper quadrant pain; Z79.899 Other long term (current) drug therapy; Z88.0 Allergy status to penicillin; Z88.8 Allergy status to other drugs, medicaments and biological substances ==

== ENCOUNTER → 2018-09-03 | Outpatient (CLI) | payer OTHER | END | disposition home or self-care (01) | LOC: CT 08-30 17:00 | DX: R10.12 Left upper quadrant pain (principal); M51.37 Other intervertebral disc degeneration, lumbosacral region; M25.78 Osteophyte, vertebrae; M43.8X6 Other specified deforming dorsopathies, lumbar region ==

== ENCOUNTER 2018-10-11 19:34 | Emergency (ER) | payer OTHER ==
[~2018-10-11] VITALS: Ht 157.4 cm; Wt 86.2 kg
[2018-10-11] MEDS ORDERED: CYCLOBENZAPRINE10 MG PO (21:06)
== END 2018-10-11 21:25 | disposition home or self-care (01) ==
LOC: ED 19:34
DX: S39.012A Strain of muscle, fascia and tendon of lower back, initial encounter (principal); K21.9 Gastro-esophageal reflux disease without esophagitis; E78.5 Hyperlipidemia, unspecified; I10 Essential (primary) hypertension; E03.9 Hypothyroidism, unspecified; E11.9 Type 2 diabetes mellitus without complications; E66.01 Morbid (severe) obesity due to excess calories; Z88.0 Allergy status to penicillin; Z88.8 Allergy status to other drugs, medicaments and biological substances; Z88.5 Allergy status to narcotic agent; Z88.1 Allergy status to other antibiotic agents; Z79.4 Long term (current) use of insulin; Z79.899 Other long term (current) drug therapy; Z79.84 Long term (current) use of oral hypoglycemic drugs; X50.9XXA Other and unspecified overexertion or strenuous movements or postures, initial encounter; Y93.89 Activity, other specified; Y92.69 Other specified industrial and construction area as the place of occurrence of the external cause; Y99.8 Other external cause status

== ENCOUNTER → 2018-11-04 | Outpatient (CLI) | payer OTHER ==
[~2018-11-04] MED LIST changes: +CYCLOBENZAPRINE10 MG PO
[2018-11-04 13:19] LABS: BASO % 0.4 % (0.0-1.0); EOS # 0.1 10*3/uL (0.0-0.4); EOS % 0.9 % (1.0-4.0); HEMATOCRIT 44.6 % (37.0-47.0); HEMOGLOBIN 14.5 g/dl (12.0-16.0); LYMPH # 3.1 10*3/uL (1.3-4.4); LYMPH % 33.7 % (27.0-41.0); MEAN CELL VOLUME 90.5 fl (81.0-99.0); MEAN CORPUSCULAR HGB 29.4 pg (27.0-31.0); MEAN CORPUSCULAR HGB CONC 32.5 g/dl (33.0-37.0); MEAN PLATELET VOLUME 10.2 fl (9.6-12.3); MONO # 0.7 10*3/uL (0.1-1.0); MONO % 7.9 % (3.0-9.0); NEUT # 5.3 10*3/uL (2.3-7.9); NEUT % 56.8 % (47.0-73.0); PLATELET COUNT AUTOMATED 239 10*3/uL (130-400); RED BLOOD COUNT 4.93 10*6/uL (4.10-5.10); RED CELL DISTRI WIDTH 13.6 % (0-14.5); WHITE BLOOD COUNT 9.3 10*3/uL (4.8-10.8)
[2018-11-04 13:38] LABS: ALBUMIN 3.6 gm/dl (3.1-4.5); ALKALINE PHOSPHATASE 94 U/L (45-117); BUN 16 mg/dl (7-24); CHLORIDE 103 mmol/L (98-107); CHOLESTEROL 197 mg/dL (<200); CREATININE 0.88 mg/dL (0.55-1.02); FREE T4 1.81 ng/dl (0.76-1.46); HDL CHOLESTEROL 49 mg/dl (40-60); LDL CHOLESTEROL 118 mg/dL (9-159); POTASSIUM 4.1 mmol/L (3.5-5.1); SGOT/AST 15 IU/L (3-35); SGPT/ALT 25 U/L (12-78); SODIUM 140 mmol/L (136-145); TOTAL PROTEIN 7.9 gm/dL (6.4-8.2); TRIGLYCERIDES 152 mg/dl (<150); VLDL CHOLESTEROL 30 mg/dL (6-40)
[2018-11-04 13:43] LABS: THYROID STIM HORMONE (HS) 0.008 uIU/ml (0.358-4.75)
[2018-11-04 13:45] LABS: VITAMIN D, 25-HYDROXY 32.6 ng/mL (30-100)
== END | disposition home or self-care (01) ==
LOC: LAB 12:30
PROVIDERS: Internal Medicine
DX: E78.2 Mixed hyperlipidemia (principal); I10 Essential (primary) hypertension; E11.9 Type 2 diabetes mellitus without complications; E03.9 Hypothyroidism, unspecified; Z79.899 Other long term (current) drug therapy

== ENCOUNTER → 2018-11-09 | Outpatient (CLI) | payer OTHER | END | disposition home or self-care (01) | LOC: ORTHO | DX: M25.552 Pain in left hip (principal) ==

== ENCOUNTER → 2018-11-26 | Outpatient (CLI) | payer OTHER | END | disposition home or self-care (01) | LOC: MRI 11-17 09:00 | DX: M51.26 Other intervertebral disc displacement, lumbar region (principal); M47.897 Other spondylosis, lumbosacral region; M48.061 Spinal stenosis, lumbar region without neurogenic claudication; S22.089A Unspecified fracture of T11-T12 vertebra, initial encounter for closed fracture; M25.552 Pain in left hip; X58.XXXA Exposure to other specified factors, initial encounter; Y93.89 Activity, other specified; Y92.89 Other specified places as the place of occurrence of the external cause; Y99.8 Other external cause status ==

== ENCOUNTER → 2018-12-09 | Outpatient (CLI) | payer OTHER ==
[~2018-12-09] MED LIST changes: +CITALOPRAM20 MG PO; +DOXYCYCLINE100 MG PO; +NEURONTIN100 MG PO; -NOVOLOG FL100 UNIT/1 SQ; +NOVOLOG FL100 UNIT/2 SQ; +SEPTDS PO; +ZANTAC 150150 MG PO; -ZANTAC150 MG
== END | disposition home or self-care (01) ==
LOC: RESCLI 02:52
DX: K21.9 Gastro-esophageal reflux disease without esophagitis (principal); E78.5 Hyperlipidemia, unspecified; E03.9 Hypothyroidism, unspecified; K76.0 Fatty (change of) liver, not elsewhere classified; E11.65 Type 2 diabetes mellitus with hyperglycemia; K31.84 Gastroparesis; I10 Essential (primary) hypertension; E55.9 Vitamin D deficiency, unspecified; E66.01 Morbid (severe) obesity due to excess calories; J30.2 Other seasonal allergic rhinitis; F32.9 Major depressive disorder, single episode, unspecified; M25.552 Pain in left hip; M54.5 Low back pain; K63.5 Polyp of colon; Z79.899 Other long term (current) drug therapy; Z90.49 Acquired absence of other specified parts of digestive tract; Z88.8 Allergy status to other drugs, medicaments and biological substances

== ENCOUNTER → 2018-12-27 | Outpatient (CLI) | payer OTHER | END | disposition home or self-care (01) | LOC: LAB 02:36 → ORTHO 02:36 | DX: M48.061 Spinal stenosis, lumbar region without neurogenic claudication (principal); E11.65 Type 2 diabetes mellitus with hyperglycemia; M25.552 Pain in left hip ==

== ENCOUNTER 2019-01-05 22:43 | Inpatient (IN) | payer OTHER ==
[~2019-01-05] VITALS: Ht 160 cm; Wt 90.0 kg
--- NOTE | ~2019-01-05 | O ---
[place], [place] OPERATIVE NOTE NAME: TITI MIRANDA UNIT #: [id number] ROOM: 426 DOCTOR: MICHELE BREAUX MD BIRTHDATE: [birth year] DOS: 01/07/2019 INDICATION: The patient has presented with dysphagia, undergoing endoscopic evaluation. PROCEDURE: Today's procedure part of investigation is panendoscopy plus biopsy plus balloon dilation of distal esophagus. PREMEDICATION: Propofol. SCOPE: Olympus forward-viewing gastroscope Q10 video. REPORT: After putting the patient in left lateral position and application of lubricant to the scope, the scope was introduced. Thereafter, under direct visualization, advanced through the length of esophagus without difficulty. Distal esophagitis, distal esophageal stricture was identified. This was dilated to size 17 balloon. Small hiatal hernia was seen. Gastritis was noted. Antral biopsy obtained. Duodenal bulb, second and third part within normal limits. The patient extubated, tolerated the procedure well. IMPRESSION: Distal esophageal stricture, status post balloon dilation, hiatal hernia, gastritis. PLAN AND DISCUSSION: Full liquid diet today. Clinical reassessment. MICHELE BREAUX MD CM:OPRECORD:OPERATIVE NOTE 1302 MICHELE BREAUX MD 01/08/19 0228 interface
--- NOTE | ~2019-01-05 | CON ---
[place], [place] REPORT OF CONSULTATION NAME: TITI MIRANDA UNIT #: [id number] ROOM: 426 DOCTOR: MICHELE BREAUX MD BIRTHDATE: [birth year] DOS: 01/07/2019 GASTROENDOSCOPIC CONSULTATION REPORT HISTORY OF PRESENT ILLNESS: A 58-year-old patient who has presented with a chief complaint of dysphagia among her GI complaints and I have been asked for assessment of the patient in this regard. White blood cells 9, H and H 13 and 39. Differential within normal limits. Comprehensive metabolic panel unremarkable. Lipase is 659. CT scan of the abdomen and pelvis, no evidence of pathology, debris in the distal esophagus signifying stricture, diverticulosis without diverticulitis. PAST MEDICAL HISTORY: Obesity, GERD, hypertension, hypothyroidism, nephrolithiasis, hepatic steatosis, diverticulosis. PAST SURGICAL HISTORY: Cholecystectomy and tonsillectomy. SOCIAL HISTORY: Nonsmoker, nonalcohol consumer. FAMILY HISTORY: Noncontributory. ALLERGIES: CODEINE, QUINOLONES, PENICILLIN, ERYTHROMYCIN, MOXIFLOXACIN. MEDICATIONS AT HOME: Reviewed including ranitidine. REVIEW OF SYSTEMS: No hematemesis, no hematochezia; however, dysphagia. No shortness of breath, no chest pain of typical character. Digestive system, dysphagia. PHYSICAL EXAMINATION: VITAL SIGNS: Stable. HEENT: Benign. NECK: Supple. No thyromegaly. CHEST: Symmetric anatomy, equal expansion. HEART: Normal sinus rhythm, no gallop, no murmur. ABDOMEN: Soft. No hepato-organomegaly. Bowel sounds present, obese. EXTREMITIES: No cyanosis, no pedal edema. NEUROLOGIC: Alert, oriented to time, place, person. IMPRESSION: Dysphagia, ruling out hiatal hernia, ruling out the stricture. OTHER ADJUNCTIVE DIAGNOSES: As explained above in past medical and surgical history. PLAN: We will proceed with EGD and therapeutics. [place], [place] REPORT OF CONSULTATION NAME: TITI MIRANDA UNIT #: [id number] ROOM: 426 DOCTOR: MICHELE BREAUX MD BIRTHDATE: [birth year] MICHELE BREAUX MD CM:CONSTR:REPORT OF CONSULTATION 1302 01/08/19 0228 interface
--- NOTE | ~2019-01-05 | EKG ---
[place], [place] ELECTROCARDIOGRAM REPORT NAME: TITI MIRANDA UNIT #: [id number] ROOM: 426 DOCTOR: PAMELA DRAFT REPORT BIRTHDATE: [birth year] [facility] Test Date: 2019-01-05 Test Time: 23:08:02 Pat Name: TITI MIRANDA Department: Room: 426 Gender: F Rn Diabetes: SS RESP : 1960 Requested By: GAMALIEL JARA PA-C Order Number: [id number] Reading MD: Anna Marie Flores MD Measurements Intervals [place] Rate: 71 P: 59 [place]: 144 QRS: 22 QRSD: 80 T: 28 QT: 365 QTc: 397 Interpretive Statements Sinus rhythm Compared to ECG 07/31/2018 00:49:21 No significant changes Electronically Signed On 01-07-2019 13:45:30 PDT by Anna Marie Flores MD CM:EKGRPT:ELECTROCARDIOGRAM REPORT 1345 GAMALIEL JARA PA-C EPIPHANY DRAFT REPORT GAMALIEL JARA PA-C
[~2019-01-05 22:43] MED LIST changes: -CITALOPRAM20 MG PO; -DOXYCYCLINE100 MG PO; -NEURONTIN100 MG PO; -SEPTDS PO
[2019-01-05 22:44] VITALS: BP 134/59
[2019-01-05 23:12] LABS: BASO # 0.1 10*3/uL (0.0-0.1); BASO % 0.5 % (0.0-1.0); EOS # 0.2 10*3/uL (0.0-0.4); EOS % 2.5 % (1.0-4.0); HEMATOCRIT 39.8 % (37.0-47.0); HEMOGLOBIN 13.4 g/dl (12.0-16.0); LYMPH # 3.5 10*3/uL (1.3-4.4); LYMPH % 38.6 % (27.0-41.0); MEAN CELL VOLUME 87.3 fl (81.0-99.0); MEAN CORPUSCULAR HGB 29.4 pg (27.0-31.0); MEAN CORPUSCULAR HGB CONC 33.7 g/dl (33.0-37.0); MEAN PLATELET VOLUME 9.7 fl (9.6-12.3); MONO # 0.7 10*3/uL (0.1-1.0); MONO % 7.5 % (3.0-9.0); NEUT # 4.6 10*3/uL (2.3-7.9); NEUT % 50.8 % (47.0-73.0); PLATELET COUNT AUTOMATED 230 10*3/uL (130-400); RED BLOOD COUNT 4.56 10*6/uL (4.10-5.10); RED CELL DISTRI WIDTH 13.4 % (0-14.5); WHITE BLOOD COUNT 9.1 10*3/uL (4.8-10.8)
[2019-01-05 23:42] LABS: BILIRUBIN NEGATIVE (NEGATIVE); BLOOD 1+ (NEGATIVE); CLARITY CLEAR (CLEAR); COLOR YELLOW (YELLOW); GLUCOSE NEGATIVE (NEGATIVE); KETONE NEGATIVE (NEGATIVE); LEUKO ESTERASE NEGATIVE (NEGATIVE); NITRITE NEGATIVE (NEGATIVE); SPECIFIC GRAVITY >= 1.030 (1.005-1.030); UROBILINOGEN 0.2 E.U./dl (0.2-1.0)
[2019-01-05 23:47] LABS: ALBUMIN 3.3 gm/dl (3.1-4.5); ALKALINE PHOSPHATASE 90 U/L (45-117); BUN 21 mg/dl (7-24); CHLORIDE 104 mmol/L (98-107); CREATININE 1.13 mg/dL (0.55-1.02); POTASSIUM 3.7 mmol/L (3.5-5.1); SGOT/AST 12 IU/L (3-35); SGPT/ALT 24 U/L (12-78); SODIUM 140 mmol/L (136-145); TOTAL PROTEIN 7.9 gm/dL (6.4-8.2)
[2019-01-05 23:48] LABS: BACTERIA 2+; MUCOUS TRACE
[2019-01-06] LABS: TROPONIN I < 0.015 ng/ml (<0.045)
--- NOTE | 2019-01-06 00:12 | NUR ---
PATIENT REPORTS MEDICATION EFFECTIVE FOR RELIEF OF NAUSEA
[2019-01-06 00:31] LABS: LIPASE 659 U/L (73-393)
[2019-01-06 01:19] VITALS: BP 119/50
[2019-01-06 01:48] VITALS: BP 133/74
--- NOTE | 2019-01-06 01:48 | NUR ---
Time: 147 A 58 year old FEMALE admitted to 4E under services of TOOTIE CURIEL DO. Pt. arrived via bed from ER. Chief complaint: PANCREATITIS, GERD. HANNY LÓPEZI
--- NOTE | 2019-01-06 06:41 | NUR ---
DR WOLFF NOTIFIED MED REC UP TO DATE.
[2019-01-06 07:03] LABS: BUN 18 mg/dl (7-24); CHLORIDE 109 mmol/L (98-107); CREATININE 0.83 mg/dL (0.55-1.02); LIPASE 224 U/L (73-393); PHOSPHOROUS 3.5 mg/dL (2.5-4.9); POTASSIUM 3.9 mmol/L (3.5-5.1); SODIUM 143 mmol/L (136-145)
[2019-01-06 08:00] VITALS: BP 103/46
--- NOTE | 2019-01-06 09:00 | NUR ---
Workflow Developer in to talk to patient. Patient states lives at home with . There are few steps in the home. Physician: [facility]: none Patient's level of ADLs: INDEPENDENT Patient has working utilities: all working DME: none Follow-up physician's appointment after d/c: will be made by hospitalist nurse director upon discharge Does patient want to access PORTAL?: no Discharge plan discussed with patient, patient lives at home with , she is independent in adls and ambulation, works and drives, patient states she will return home when able and denies any home needs. MARIE GARCIA
--- NOTE | 2019-01-06 11:33 | NUR ---
TORADOL HELD PER ORDER BY DR. BREAUX.
[2019-01-06 12:00] VITALS: BP 112/54
--- NOTE | 2019-01-06 13:59 | NUR ---
DR BREAUX NOTIFIED OF CONSULT. NEW ORDERS RECEIVED.
--- NOTE | 2019-01-06 14:52 | NUR ---
TYLENOL GIVEN PER ORDER BY DR. GAMBLE FOR HEADACHE OF 4 OUT OF 10. WILL REASSESS.
[2019-01-06 16:00] VITALS: BP 114/50
--- NOTE | 2019-01-06 16:13 | NUR ---
TYLENOL EFFECTIVE FOR HEADACHE. PT RESTING COMFORTABLY.
[2019-01-06 20:00] VITALS: BP 128/50
--- NOTE | 2019-01-06 20:18 | NUR ---
ASSUMED CARE OF PATIENT. PATIENT IS RESTING IN BED WITH EASY AND REGULAR RESPERS ON ROOM AIR. ASSESSMENT IS COMPLETE WITH NO C/O OR S/S OF DISTRESS NOTED AT THIS TIME. BED IS LOW, LOCKED, AND CALL LIGHT IS WITHIN REACH. SEE SHIFT ASSESSMENT.
[2019-01-07] VITALS (8 sets, daily range): BP systolic 103–135; BP diastolic 36–61
[2019-01-07 06:50] LABS: BASO # 0.1 10*3/uL (0.0-0.1); BASO % 0.6 % (0.0-1.0); EOS # 0.3 10*3/uL (0.0-0.4); EOS % 2.8 % (1.0-4.0); HEMOGLOBIN 12.4 g/dl (12.0-16.0); LYMPH # 3.8 10*3/uL (1.3-4.4); LYMPH % 43.1 % (27.0-41.0); MEAN CELL VOLUME 89.6 fl (81.0-99.0); MEAN CORPUSCULAR HGB CONC 33.5 g/dl (33.0-37.0); MEAN PLATELET VOLUME 9.6 fl (9.6-12.3); MONO # 0.8 10*3/uL (0.1-1.0); MONO % 8.6 % (3.0-9.0); NEUT % 44.7 % (47.0-73.0); PLATELET COUNT AUTOMATED 208 10*3/uL (130-400); RED BLOOD COUNT 4.13 10*6/uL (4.10-5.10); RED CELL DISTRI WIDTH 13.5 % (0-14.5); WHITE BLOOD COUNT 8.9 10*3/uL (4.8-10.8)
[2019-01-07 07:24] LABS: BUN 12 mg/dl (7-24); CHLORIDE 107 mmol/L (98-107); POTASSIUM 3.7 mmol/L (3.5-5.1); SODIUM 143 mmol/L (136-145)
[2019-01-07 07:26] LABS: CREATININE 0.77 mg/dL (0.55-1.02)
--- NOTE | 2019-01-07 09:00 | NUR ---
case management attempted to visit with patient, patient out of room for testing
--- NOTE | 2019-01-07 10:55 | NUR ---
PATIENT OFF THE FLOOR TO SURGERY AT THIS TIME. PATIENT IN STABLE CONDIION AND MADE AWARE OF PLAN.
--- NOTE | 2019-01-07 13:30 | NUR ---
PATIENT BACK TO FLOOR FROM SURGERY AT THIS TIME, PATIENT IN STABLE CONDITION, VITAL SIGNS WITHIN NORMAL LIMITS. DENIES ANY NEEDS AT THIS TIME.
--- NOTE | 2019-01-07 21:23 | NUR ---
ASSUMED CARE OF PATIENT. PATIENT IS RESTING IN CHAIR WITH EASY AND REGULAR RESPERS ON ROOM AIR. ASSESSMENT IS COMPLETE WITH NO C/O OR S/S OF DISTRESS NOTED AT THIS TIME. BSG 149. CALL LIGHT IS WITHIN REACH WILL MONITOR EFFECT.
[2019-01-08] VITALS: BP 120/56
[2019-01-08 08:00] VITALS: BP 123/47
[2019-01-08 12:00] VITALS: BP 134/47
[2019-01-08 16:00] VITALS: BP 120/49
--- NOTE | 2019-01-08 19:30 | NUR ---
BEDSIDE SHIFT REPORT OBTAINED FROM DAY SHIFT RN. PT IS RESTING IN BED AT THIS TIME. FAMILY IS AT THE BEDSIDE. SHE DENIES ANY PAIN OR DISCOMFORT. SHE STATES SHE IS FEELING BETTER AND HOPES TO GO HOME TOMORROW. RESPIRATIONS ARE EASY AND NONLABORED ON ROOM AIR. BED LOCKED AND IN LOWEST POSITION, CALL LIGHT WITHIN REACH. WILL CONTINUE TO MONITOR
[2019-01-08 20:00] VITALS: BP 129/51
[2019-01-09] VITALS: BP 114/52
[2019-01-09 08:00] VITALS: BP 124/60
--- NOTE | 2019-01-09 08:30 | NUR ---
Patient resting quietly with no c/o discomfort. Respirations easy and regular. Vital signs stable. No overt distress. SUSANA MCKEE R
--- NOTE | 2019-01-09 09:52 | NUR ---
SPOKE WITH DR BREAUX, OK PER HIM TO DISCHARGE PT TODAY.
[2019-01-09 12:00] VITALS: BP 110/54
--- NOTE | 2019-01-09 13:00 | NUR ---
Discharge instructions reviewed with patient/family. Patient receptive and verbalizes understanding. Follow-up care arranged. Written instructions given to patient/family. SUSANA MCKEE
[2019-01-12] MEDS ORDERED: SEPTDS PO (22:29)
[2019-02-11] MEDS ORDERED: DOXYCYCLINE100 MG PO (14:29)
[2019-02-11] MEDS ORDERED: CITALOPRAM20 MG PO (14:30)
[2019-02-11] MEDS ORDERED: NEURONTIN100 MG PO (14:30)
== END 2019-01-09 13:00 | disposition home or self-care (01) | DRG 438 ==
LOC: ED 22:43 → 4E 01-06 01:11 → EDHOLD 01-06 01:11 → 4E 01-06 01:24
PROVIDERS: Internal Medicine; Physician Assistant; Student in an Organized Health Care Education/Training Program; ADMIT Internal Medicine
DX: K85.90 Acute pancreatitis without necrosis or infection, unspecified (principal); N17.0 Acute kidney failure with tubular necrosis; K29.00 Acute gastritis without bleeding; K21.9 Gastro-esophageal reflux disease without esophagitis; F32.9 Major depressive disorder, single episode, unspecified; K22.2 Esophageal obstruction; K44.9 Diaphragmatic hernia without obstruction or gangrene; R82.71 Bacteriuria; R31.21 Asymptomatic microscopic hematuria; F45.8 Other somatoform disorders; E11.65 Type 2 diabetes mellitus with hyperglycemia; Z74.9 Problem related to care provider dependency, unspecified; E66.01 Morbid (severe) obesity due to excess calories; I11.0 Hypertensive heart disease with heart failure; E55.9 Vitamin D deficiency, unspecified; E03.9 Hypothyroidism, unspecified; E87.8 Other disorders of electrolyte and fluid balance, not elsewhere classified; R00.1 Bradycardia, unspecified; Z88.0 Allergy status to penicillin; Z88.5 Allergy status to narcotic agent; Z88.8 Allergy status to other drugs, medicaments and biological substances; Z88.1 Allergy status to other antibiotic agents; Z82.49 Family history of ischemic heart disease and other diseases of the circulatory system; Z90.49 Acquired absence of other specified parts of digestive tract; Z79.899 Other long term (current) drug therapy; Z80.51 Family history of malignant neoplasm of kidney; Z68.35 Body mass index [BMI] 35.0-35.9, adult

== ENCOUNTER → 2019-04-13 | Outpatient (CLI) | payer OTHER ==
[~2019-04-13] MED LIST changes: +CITALOPRAM20 MG PO; +DOXYCYCLINE100 MG PO; +NEURONTIN100 MG PO; +SEPTDS PO
== END | disposition home or self-care (01) ==
LOC: RESCLI 00:10
DX: J06.9 Acute upper respiratory infection, unspecified (principal); J30.2 Other seasonal allergic rhinitis; K21.9 Gastro-esophageal reflux disease without esophagitis; E78.5 Hyperlipidemia, unspecified; E03.9 Hypothyroidism, unspecified; K76.0 Fatty (change of) liver, not elsewhere classified; E11.65 Type 2 diabetes mellitus with hyperglycemia; K31.84 Gastroparesis; I10 Essential (primary) hypertension; F32.9 Major depressive disorder, single episode, unspecified; M54.5 Low back pain; G89.29 Other chronic pain; Z79.899 Other long term (current) drug therapy

== ENCOUNTER → 2019-07-14 | Outpatient (CLI) | payer SELFPAY ==
[2019-07-14 11:11] LABS: FREE T4 1.97 ng/dl (0.76-1.46)
== END | disposition home or self-care (01) ==
LOC: RESCLI 01:50
PROVIDERS: Internal Medicine
DX: K21.9 Gastro-esophageal reflux disease without esophagitis (principal); E03.9 Hypothyroidism, unspecified; K31.84 Gastroparesis; I10 Essential (primary) hypertension; E11.65 Type 2 diabetes mellitus with hyperglycemia; J30.2 Other seasonal allergic rhinitis; M54.5 Low back pain; F32.9 Major depressive disorder, single episode, unspecified; R42 Dizziness and giddiness; B37.9 Candidiasis, unspecified; K76.0 Fatty (change of) liver, not elsewhere classified; R13.10 Dysphagia, unspecified; E55.9 Vitamin D deficiency, unspecified; E66.9 Obesity, unspecified; Z68.39 Body mass index [BMI] 39.0-39.9, adult; Z79.899 Other long term (current) drug therapy

== ENCOUNTER → 2019-09-22 | Outpatient (CLI) | payer SELFPAY ==
[2019-09-22 12:51] LABS: FREE T4 2.14 ng/dl (0.76-1.46)
== END | disposition home or self-care (01) ==
LOC: RESCLI 00:12
PROVIDERS: Internal Medicine
DX: E11.65 Type 2 diabetes mellitus with hyperglycemia (principal); B37.9 Candidiasis, unspecified; K21.9 Gastro-esophageal reflux disease without esophagitis; K31.84 Gastroparesis; J30.2 Other seasonal allergic rhinitis; M54.5 Low back pain; R42 Dizziness and giddiness; K76.0 Fatty (change of) liver, not elsewhere classified; E55.9 Vitamin D deficiency, unspecified; E03.9 Hypothyroidism, unspecified; F32.9 Major depressive disorder, single episode, unspecified; I10 Essential (primary) hypertension; E66.9 Obesity, unspecified; Z79.899 Other long term (current) drug therapy; Z88.8 Allergy status to other drugs, medicaments and biological substances

== ENCOUNTER → 2019-10-27 | Outpatient (CLI) | payer SELFPAY ==
[2019-10-27 11:14] LABS: BASO % 0.6 % (0.0-1.0); EOS # 0.1 10*3/uL (0.0-0.4); EOS % 1.4 % (1.0-4.0); HEMATOCRIT 41.5 % (37.0-47.0); HEMOGLOBIN 13.6 g/dl (12.0-16.0); LYMPH # 2.6 10*3/uL (1.3-4.4); LYMPH % 37.1 % (27.0-41.0); MEAN CELL VOLUME 88.7 fl (81.0-99.0); MEAN CORPUSCULAR HGB 29.1 pg (27.0-31.0); MEAN CORPUSCULAR HGB CONC 32.8 g/dl (33.0-37.0); MEAN PLATELET VOLUME 10.9 fl (9.6-12.3); MONO # 0.8 10*3/uL (0.1-1.0); MONO % 10.8 % (3.0-9.0); NEUT # 3.5 10*3/uL (2.3-7.9); PLATELET COUNT AUTOMATED 225 10*3/uL (130-400); RED BLOOD COUNT 4.68 10*6/uL (4.10-5.10); RED CELL DISTRI WIDTH 13.2 % (0-14.5)
[2019-10-27 11:27] LABS: BILIRUBIN 1+ (NEGATIVE); BLOOD NEGATIVE (NEGATIVE); CLARITY SL CLOUDY (CLEAR); COLOR YELLOW (YELLOW); GLUCOSE 1+ (NEGATIVE); KETONE NEGATIVE (NEGATIVE); LEUKO ESTERASE NEGATIVE (NEGATIVE); NITRITE NEGATIVE (NEGATIVE); SPECIFIC GRAVITY >= 1.030 (1.005-1.030); UROBILINOGEN 0.2 E.U./dl (0.2-1.0)
[2019-10-27 11:30] LABS: ALBUMIN 3.2 gm/dl (3.1-4.5); ALKALINE PHOSPHATASE 87 U/L (45-117); BUN 16 mg/dl (7-24); CHLORIDE 103 mmol/L (98-107); CHOLESTEROL 161 mg/dL (<200); CREATININE 0.89 mg/dL (0.55-1.02); HDL CHOLESTEROL 37 mg/dl (40-60); LDL CHOLESTEROL 77 mg/dL (9-159); PHOSPHOROUS 3.7 mg/dL (2.5-4.9); POTASSIUM 3.9 mmol/L (3.5-5.1); SGOT/AST 17 IU/L (3-35); SGPT/ALT 23 U/L (12-78); SODIUM 138 mmol/L (136-145); TOTAL PROTEIN 7.1 gm/dL (6.4-8.2); TRIGLYCERIDES 234 mg/dl (<150); VLDL CHOLESTEROL 47 mg/dL (6-40)
[2019-10-27 11:55] LABS: VITAMIN D, 25-HYDROXY 23.8 ng/mL (30-100)
[2019-10-27 13:05] LABS: BACTERIA 1+
[2019-10-27 13:06] LABS: HYALINE CAST TNTC; MUCOUS 1+
== END | disposition home or self-care (01) ==
LOC: RESCLI 01:34
PROVIDERS: Internal Medicine
DX: N20.0 Calculus of kidney (principal); E11.65 Type 2 diabetes mellitus with hyperglycemia; B37.9 Candidiasis, unspecified; K21.9 Gastro-esophageal reflux disease without esophagitis; K31.84 Gastroparesis; J30.2 Other seasonal allergic rhinitis; M54.5 Low back pain; F32.9 Major depressive disorder, single episode, unspecified; I10 Essential (primary) hypertension; E03.9 Hypothyroidism, unspecified; E66.01 Morbid (severe) obesity due to excess calories; R42 Dizziness and giddiness; Z79.899 Other long term (current) drug therapy; Z90.49 Acquired absence of other specified parts of digestive tract; Z90.89 Acquired absence of other organs; Z88.8 Allergy status to other drugs, medicaments and biological substances; Z88.0 Allergy status to penicillin

== ENCOUNTER → 2019-12-15 | Outpatient (CLI) | payer SELFPAY | END | disposition home or self-care (01) | LOC: RESCLI 01:10 | DX: Z76.89 Persons encountering health services in other specified circumstances (principal); I10 Essential (primary) hypertension; F32.1 Major depressive disorder, single episode, moderate; J30.2 Other seasonal allergic rhinitis; E55.9 Vitamin D deficiency, unspecified; E66.9 Obesity, unspecified; E11.9 Type 2 diabetes mellitus without complications; E66.01 Morbid (severe) obesity due to excess calories; K31.84 Gastroparesis; N39.41 Urge incontinence; E11.65 Type 2 diabetes mellitus with hyperglycemia; G89.29 Other chronic pain; M51.26 Other intervertebral disc displacement, lumbar region; K21.9 Gastro-esophageal reflux disease without esophagitis; J44.9 Chronic obstructive pulmonary disease, unspecified; K75.81 Nonalcoholic steatohepatitis (NASH); E03.9 Hypothyroidism, unspecified; N20.0 Calculus of kidney; K57.90 Diverticulosis of intestine, part unspecified, without perforation or abscess without bleeding; E78.5 Hyperlipidemia, unspecified; F32.9 Major depressive disorder, single episode, unspecified; M47.816 Spondylosis without myelopathy or radiculopathy, lumbar region; R13.10 Dysphagia, unspecified; R42 Dizziness and giddiness; Z79.4 Long term (current) use of insulin; Z79.899 Other long term (current) drug therapy; Z88.8 Allergy status to other drugs, medicaments and biological substances; Z90.49 Acquired absence of other specified parts of digestive tract; Z90.89 Acquired absence of other organs ==

== ENCOUNTER → 2020-05-28 | Outpatient (CLI) | payer SELFPAY ==
[2020-05-28 15:15] LABS: FREE T4 1.71 ng/dl (0.76-1.46)
== END | disposition home or self-care (01) ==
LOC: RESCLI 01:30
PROVIDERS: Internal Medicine
DX: E11.65 Type 2 diabetes mellitus with hyperglycemia (principal); M25.511 Pain in right shoulder; I10 Essential (primary) hypertension; F32.9 Major depressive disorder, single episode, unspecified; M54.5 Low back pain; K21.9 Gastro-esophageal reflux disease without esophagitis; E55.9 Vitamin D deficiency, unspecified; J44.9 Chronic obstructive pulmonary disease, unspecified; E78.5 Hyperlipidemia, unspecified; E05.90 Thyrotoxicosis, unspecified without thyrotoxic crisis or storm; M51.26 Other intervertebral disc displacement, lumbar region; R42 Dizziness and giddiness

== ENCOUNTER → 2020-08-22 | Outpatient (CLI) | payer SELFPAY ==
[2020-08-22 11:12] LABS: BASO % 0.6 % (0.0-1.0); EOS # 0.1 10*3/uL (0.0-0.4); EOS % 1.3 % (1.0-4.0); HEMATOCRIT 42.1 % (37.0-47.0); LYMPH # 2.7 10*3/uL (1.3-4.4); LYMPH % 38.1 % (27.0-41.0); MEAN CELL VOLUME 88.8 fl (81.0-99.0); MEAN CORPUSCULAR HGB 29.5 pg (27.0-31.0); MEAN CORPUSCULAR HGB CONC 33.3 g/dl (33.0-37.0); MEAN PLATELET VOLUME 9.8 fl (9.6-12.3); MONO # 0.6 10*3/uL (0.1-1.0); MONO % 8.8 % (3.0-9.0); NEUT # 3.6 10*3/uL (2.3-7.9); NEUT % 51.1 % (47.0-73.0); PLATELET COUNT AUTOMATED 233 10*3/uL (130-400); RED BLOOD COUNT 4.74 10*6/uL (4.10-5.10); RED CELL DISTRI WIDTH 13.3 % (0-14.5)
[2020-08-22 11:31] LABS: ALBUMIN 3.4 gm/dl (3.1-4.5); ALKALINE PHOSPHATASE 113 U/L (45-117); BUN 13 mg/dl (7-24); CHLORIDE 108 mmol/L (98-107); CHOLESTEROL 163 mg/dL (<200); CREATININE 0.89 mg/dL (0.55-1.02); HDL CHOLESTEROL 43 mg/dl (40-60); LDL CHOLESTEROL 90 mg/dL (9-159); POTASSIUM 3.9 mmol/L (3.5-5.1); SGOT/AST 21 IU/L (3-35); SGPT/ALT 24 U/L (12-78); SODIUM 143 mmol/L (136-145); TRIGLYCERIDES 149 mg/dl (<150); VLDL CHOLESTEROL 30 mg/dL (6-40)
[2020-08-22 11:55] LABS: FREE T4 1.38 ng/dl (0.76-1.46)
== END | disposition home or self-care (01) ==
LOC: RESCLI 09:53
PROVIDERS: ATTEND Student in an Organized Health Care Education/Training Program
DX: Z23 Encounter for immunization (principal); F33.9 Major depressive disorder, recurrent, unspecified; K21.9 Gastro-esophageal reflux disease without esophagitis; E78.5 Hyperlipidemia, unspecified; I10 Essential (primary) hypertension; R42 Dizziness and giddiness; E11.9 Type 2 diabetes mellitus without complications; M51.26 Other intervertebral disc displacement, lumbar region; N39.41 Urge incontinence; E55.9 Vitamin D deficiency, unspecified; G89.29 Other chronic pain; J44.9 Chronic obstructive pulmonary disease, unspecified; K75.81 Nonalcoholic steatohepatitis (NASH); E66.01 Morbid (severe) obesity due to excess calories; J30.2 Other seasonal allergic rhinitis; E03.9 Hypothyroidism, unspecified; K31.84 Gastroparesis; H10.9 Unspecified conjunctivitis; B37.9 Candidiasis, unspecified; Z79.4 Long term (current) use of insulin

== ENCOUNTER → 2020-09-10 | Outpatient (CLI) | payer SELFPAY | END | disposition home or self-care (01) | LOC: RESCLI 05:22 | PROVIDERS: ATTEND Internal Medicine Nephrology | DX: E03.9 Hypothyroidism, unspecified (principal); I10 Essential (primary) hypertension; E11.9 Type 2 diabetes mellitus without complications; H04.203 Unspecified epiphora, bilateral; Z79.899 Other long term (current) drug therapy; Z90.49 Acquired absence of other specified parts of digestive tract; Z98.890 Other specified postprocedural states; Z88.8 Allergy status to other drugs, medicaments and biological substances ==

== ENCOUNTER → 2021-01-03 | Outpatient (CLI) | payer SELFPAY | END | disposition home or self-care (01) | LOC: RESCLI 02:35 | PROVIDERS: ATTEND Internal Medicine | DX: F33.9 Major depressive disorder, recurrent, unspecified (principal); K21.9 Gastro-esophageal reflux disease without esophagitis; E78.5 Hyperlipidemia, unspecified; I10 Essential (primary) hypertension; R42 Dizziness and giddiness; E11.9 Type 2 diabetes mellitus without complications; K57.90 Diverticulosis of intestine, part unspecified, without perforation or abscess without bleeding; M51.26 Other intervertebral disc displacement, lumbar region; N36.41 Hypermobility of urethra; E55.9 Vitamin D deficiency, unspecified; G89.29 Other chronic pain; J44.9 Chronic obstructive pulmonary disease, unspecified; E66.01 Morbid (severe) obesity due to excess calories; E11.65 Type 2 diabetes mellitus with hyperglycemia; J30.2 Other seasonal allergic rhinitis; E03.9 Hypothyroidism, unspecified; R13.10 Dysphagia, unspecified; K31.84 Gastroparesis; K76.0 Fatty (change of) liver, not elsewhere classified; M47.816 Spondylosis without myelopathy or radiculopathy, lumbar region; E66.9 Obesity, unspecified; N20.0 Calculus of kidney; E05.90 Thyrotoxicosis, unspecified without thyrotoxic crisis or storm; E04.1 Nontoxic single thyroid nodule; R19.09 Other intra-abdominal and pelvic swelling, mass and lump; Z12.39 Encounter for other screening for malignant neoplasm of breast; Z76.89 Persons encountering health services in other specified circumstances; Z79.4 Long term (current) use of insulin; Z79.899 Other long term (current) drug therapy; Z79.891 Long term (current) use of opiate analgesic ==

== ENCOUNTER → 2021-03-13 | Outpatient (CLI) | payer SELFPAY ==
[2021-03-13 09:35] LABS: BASO % 0.5 % (0.0-1.0); EOS # 0.2 10*3/uL (0.0-0.4); EOS % 1.8 % (1.0-4.0); HEMATOCRIT 41.2 % (37.0-47.0); LYMPH # 3.2 10*3/uL (1.3-4.4); LYMPH % 37.1 % (27.0-41.0); MEAN CELL VOLUME 91.4 fl (81.0-99.0); MEAN CORPUSCULAR HGB 30.2 pg (27.0-31.0); MEAN PLATELET VOLUME 9.3 fl (9.6-12.3); MONO # 0.6 10*3/uL (0.1-1.0); MONO % 7.4 % (3.0-9.0); NEUT # 4.5 10*3/uL (2.3-7.9); NEUT % 52.8 % (47.0-73.0); PLATELET COUNT AUTOMATED 200 10*3/uL (130-400); RED BLOOD COUNT 4.51 10*6/uL (4.10-5.10); RED CELL DISTRI WIDTH 13.6 % (0-14.5); WHITE BLOOD COUNT 8.6 10*3/uL (4.8-10.8)
[2021-03-13 10:25] LABS: FREE T4 0.88 ng/dl (0.76-1.46)
[2021-03-13 11:04] LABS: VITAMIN D, 25-HYDROXY 31.9 ng/mL (30-100)
== END | disposition home or self-care (01) ==
LOC: LAB 09:17
PROVIDERS: Student in an Organized Health Care Education/Training Program; ATTEND Internal Medicine
DX: E78.5 Hyperlipidemia, unspecified (principal); E11.9 Type 2 diabetes mellitus without complications; E55.9 Vitamin D deficiency, unspecified; E03.9 Hypothyroidism, unspecified

== ENCOUNTER → 2021-03-13 | Outpatient (CLI) | payer SELFPAY | END | disposition home or self-care (01) | LOC: RESCLI 01:45 | PROVIDERS: ATTEND Internal Medicine Nephrology | DX: F33.9 Major depressive disorder, recurrent, unspecified (principal); K21.9 Gastro-esophageal reflux disease without esophagitis; E78.5 Hyperlipidemia, unspecified; I10 Essential (primary) hypertension; R42 Dizziness and giddiness; E11.9 Type 2 diabetes mellitus without complications; K57.90 Diverticulosis of intestine, part unspecified, without perforation or abscess without bleeding; M51.26 Other intervertebral disc displacement, lumbar region; N39.41 Urge incontinence; E55.9 Vitamin D deficiency, unspecified; E66.01 Morbid (severe) obesity due to excess calories; E11.65 Type 2 diabetes mellitus with hyperglycemia; J30.2 Other seasonal allergic rhinitis; E03.9 Hypothyroidism, unspecified; R13.10 Dysphagia, unspecified; K31.84 Gastroparesis; K76.0 Fatty (change of) liver, not elsewhere classified; M47.816 Spondylosis without myelopathy or radiculopathy, lumbar region; E66.9 Obesity, unspecified; N20.0 Calculus of kidney; E05.90 Thyrotoxicosis, unspecified without thyrotoxic crisis or storm; E04.1 Nontoxic single thyroid nodule; R19.09 Other intra-abdominal and pelvic swelling, mass and lump; Z79.4 Long term (current) use of insulin; Z76.89 Persons encountering health services in other specified circumstances; Z12.39 Encounter for other screening for malignant neoplasm of breast; Z79.899 Other long term (current) drug therapy; Z90.49 Acquired absence of other specified parts of digestive tract ==

== ENCOUNTER → 2021-05-01 | Outpatient (CLI) | payer SELFPAY ==
[2021-05-02 15:08] LABS: ANTI-DSDNA ANTIBODIES <1 IU/mL (0-9); ANTI-RNP ANTIBODIES <0.2 AI (0.0-0.9); ANTICHROMATIN ANTIBODIES <0.2 AI (0.0-0.9); ANTISCLERODERMA-70 AB <0.2 AI (0.0-0.9); SJOGREN ANTI-SS-A <0.2 AI (0.0-0.9); SJOREN AB, ANTI-SS-B <0.2 AI (0.0-0.9)
== END | disposition home or self-care (01) ==
LOC: RESCLI 00:46
PROVIDERS: Internal Medicine; ATTEND Student in an Organized Health Care Education/Training Program
DX: M25.512 Pain in left shoulder (principal); M25.511 Pain in right shoulder; M25.552 Pain in left hip; M25.551 Pain in right hip; E78.5 Hyperlipidemia, unspecified; K21.9 Gastro-esophageal reflux disease without esophagitis; I10 Essential (primary) hypertension; E11.9 Type 2 diabetes mellitus without complications; E66.01 Morbid (severe) obesity due to excess calories; J30.2 Other seasonal allergic rhinitis; E03.9 Hypothyroidism, unspecified; M47.816 Spondylosis without myelopathy or radiculopathy, lumbar region; R42 Dizziness and giddiness; J44.9 Chronic obstructive pulmonary disease, unspecified; B37.9 Candidiasis, unspecified; F33.9 Major depressive disorder, recurrent, unspecified; M13.0 Polyarthritis, unspecified; Z88.8 Allergy status to other drugs, medicaments and biological substances; Z90.49 Acquired absence of other specified parts of digestive tract; Z98.890 Other specified postprocedural states; Z79.899 Other long term (current) drug therapy

== ENCOUNTER → 2021-06-07 | Outpatient (CLI) | payer SELFPAY ==
[2021-06-08 08:08] LABS: RHEUMATOID ARTHRITIS FACTOR <10.0 IU/mL (0.0-13.9)
[2021-06-11 00:06] LABS: CCP ANTIBODIES IGG/IGA 7 units (0-19)
== END | disposition home or self-care (01) ==
LOC: RESCLI 00:42
PROVIDERS: Internal Medicine; ATTEND Internal Medicine
DX: K21.9 Gastro-esophageal reflux disease without esophagitis (principal); E78.5 Hyperlipidemia, unspecified; I10 Essential (primary) hypertension; E11.9 Type 2 diabetes mellitus without complications; E66.01 Morbid (severe) obesity due to excess calories; J30.2 Other seasonal allergic rhinitis; E03.9 Hypothyroidism, unspecified; M47.816 Spondylosis without myelopathy or radiculopathy, lumbar region; R42 Dizziness and giddiness; J44.9 Chronic obstructive pulmonary disease, unspecified; B37.9 Candidiasis, unspecified; F39 Unspecified mood [affective] disorder; M13.0 Polyarthritis, unspecified; G47.33 Obstructive sleep apnea (adult) (pediatric); Z88.0 Allergy status to penicillin; Z88.8 Allergy status to other drugs, medicaments and biological substances; Z90.49 Acquired absence of other specified parts of digestive tract; Z98.890 Other specified postprocedural states; Z79.899 Other long term (current) drug therapy

== ENCOUNTER → 2021-09-06 | Outpatient (CLI) | payer SELFPAY | END | disposition home or self-care (01) | LOC: RESCLI 00:39 | PROVIDERS: ATTEND Internal Medicine | DX: F33.9 Major depressive disorder, recurrent, unspecified (principal); K21.9 Gastro-esophageal reflux disease without esophagitis; E78.5 Hyperlipidemia, unspecified; I10 Essential (primary) hypertension; R42 Dizziness and giddiness; E11.9 Type 2 diabetes mellitus without complications; J44.9 Chronic obstructive pulmonary disease, unspecified; E03.9 Hypothyroidism, unspecified; J30.2 Other seasonal allergic rhinitis; B37.9 Candidiasis, unspecified; M13.0 Polyarthritis, unspecified; Z79.899 Other long term (current) drug therapy; Z88.0 Allergy status to penicillin; Z88.8 Allergy status to other drugs, medicaments and biological substances; Z90.49 Acquired absence of other specified parts of digestive tract; Z98.890 Other specified postprocedural states ==

== ENCOUNTER → 2021-09-16 | Outpatient (CLI) | payer SELFPAY ==
[2021-09-16 11:28] LABS: ALBUMIN 3.4 gm/dl (3.1-4.5); ALKALINE PHOSPHATASE 64 U/L (45-117); BUN 12 mg/dl (7-24); CHLORIDE 105 mmol/L (98-107); CHOLESTEROL 181 mg/dL (<200); CREATININE 1.01 mg/dL (0.55-1.02); LDL CHOLESTEROL 109 mg/dL (9-159); POTASSIUM 3.7 mmol/L (3.5-5.1); SGOT/AST 28 IU/L (3-35); SGPT/ALT 31 U/L (12-78); SODIUM 141 mmol/L (136-145); TOTAL PROTEIN 7.5 gm/dL (6.4-8.2); TRIGLYCERIDES 157 mg/dl (<150)
[2021-09-16 20:07] LABS: HEMATOCRIT 36.8 % (37.0-47.0); MEAN CELL VOLUME 91.3 fl (81.0-99.0); MEAN CORPUSCULAR HGB 30.3 pg (27.0-31.0); MEAN CORPUSCULAR HGB CONC 33.2 g/dl (33.0-37.0); MEAN PLATELET VOLUME 8.2 fl (9.6-12.3); RED BLOOD COUNT 4.03 10*6/uL (4.10-5.10); RED CELL DISTRI WIDTH 14.4 % (0-14.5); WHITE BLOOD COUNT 10.3 10*3/uL (4.8-10.8)
[2021-09-16 20:19] LABS: PLATELET COUNT AUTOMATED 2 10*3/uL (130-400)
[2021-09-16 20:28] LABS: PLATELET SUFFICIENCY LOW (NORMAL); TOTAL CELLS COUNTED 100 #CELLS
== END | disposition home or self-care (01) ==
LOC: LAB 10:36
PROVIDERS: Internal Medicine; ATTEND Internal Medicine Nephrology
DX: E03.9 Hypothyroidism, unspecified (principal); E11.9 Type 2 diabetes mellitus without complications; E78.5 Hyperlipidemia, unspecified

== ENCOUNTER 2021-09-17 12:25 | Inpatient (IN) | payer SELFPAY ==
[~2021-09-17] VITALS: Ht 157.4 cm; Wt 100.3 kg
[2021-09-17] VITALS (11 sets, daily range): BP systolic 108–142; BP diastolic 45–72
[2021-09-17 13:08] LABS: HEMATOCRIT 37.5 % (37.0-47.0); MEAN CORPUSCULAR HGB 30.6 pg (27.0-31.0); MEAN CORPUSCULAR HGB CONC 33.6 g/dl (33.0-37.0); RED BLOOD COUNT 4.12 10*6/uL (4.10-5.10); RED CELL DISTRI WIDTH 14.3 % (0-14.5); WHITE BLOOD COUNT 7.2 10*3/uL (4.8-10.8)
[2021-09-17 13:13] LABS: PLATELET COUNT AUTOMATED 1 10*3/uL (130-400)
[2021-09-17 13:16] LABS: ACT PARTIAL THROMBO TIME 24.2 SECONDS (20.0-32.1)
[2021-09-17 13:20] LABS: ALBUMIN 3.4 gm/dl (3.1-4.5); CREATININE 1.15 mg/dL (0.55-1.02); POTASSIUM 3.5 mmol/L (3.5-5.1); TOTAL PROTEIN 7.4 gm/dL (6.4-8.2)
[2021-09-17 13:25] LABS: BASOPHILS 1 % (0-1); OVALOCYTES FEW; PLATELET SUFFICIENCY LOW (NORMAL); POLYCHROMASIA SLIGHT; TOTAL CELLS COUNTED 100 #CELLS
[2021-09-17 14:13] LABS: BILIRUBIN Negative (Negative); BLOOD 2+ (Negative); CLARITY Cloudy (Clear); COLOR Yellow (Yellow); GLUCOSE 2+ (Negative); KETONE Negative (Negative); LEUKO ESTERASE Trace (Negative); NITRITE Negative (Negative); SPECIFIC GRAVITY >= 1.030 (1.001-1.030); UROBILINOGEN 0.2 E.U./dl (0.0-1.0)
[2021-09-17 14:46] LABS: BACTERIA 1+; MUCOUS 1+; WBC 21-30 wbc/hpf (0-5)
[2021-09-18 00:30] VITALS: BP 127/58
[2021-09-18 02:00] LABS: HEMATOCRIT 37.9 % (37.0-47.0); MEAN CELL VOLUME 91.1 fl (81.0-99.0); MEAN CORPUSCULAR HGB 29.8 pg (27.0-31.0); MEAN CORPUSCULAR HGB CONC 32.7 g/dl (33.0-37.0); PLATELET COUNT AUTOMATED 42 10*3/uL (130-400); RED BLOOD COUNT 4.16 10*6/uL (4.10-5.10); RED CELL DISTRI WIDTH 14.3 % (0-14.5); WHITE BLOOD COUNT 8.2 10*3/uL (4.8-10.8)
[2021-09-18 02:20] LABS: PLATELET SUFFICIENCY LOW (NORMAL); TOTAL CELLS COUNTED 100 #CELLS
[2021-09-18 04:00] VITALS: BP 108/51
[2021-09-18 05:11] LABS: ALBUMIN 3.4 gm/dl (3.1-4.5); BUN 15 mg/dl (7-24); CHLORIDE 102 mmol/L (98-107); CREATININE 1.03 mg/dL (0.55-1.02); POTASSIUM 4.1 mmol/L (3.5-5.1); SGPT/ALT 33 U/L (12-78); SODIUM 136 mmol/L (136-145); TOTAL PROTEIN 7.6 gm/dL (6.4-8.2)
[2021-09-18 05:20] LABS: ALKALINE PHOSPHATASE 70 U/L (45-117); SGOT/AST 21 IU/L (3-35); THYROID STIM HORMONE (HS) 0.888 uIU/ml (0.358-4.75)
[2021-09-18 06:19] LABS: HEMATOCRIT 37.2 % (37.0-47.0); MEAN CELL VOLUME 91.9 fl (81.0-99.0); MEAN CORPUSCULAR HGB 30.4 pg (27.0-31.0); MEAN CORPUSCULAR HGB CONC 33.1 g/dl (33.0-37.0); MEAN PLATELET VOLUME 9.8 fl (9.6-12.3); PLATELET COUNT AUTOMATED 47 10*3/uL (130-400); RED BLOOD COUNT 4.05 10*6/uL (4.10-5.10); RED CELL DISTRI WIDTH 14.3 % (0-14.5); WHITE BLOOD COUNT 8.6 10*3/uL (4.8-10.8)
[2021-09-18 07:35] LABS: BASOPHILS 1 % (0-1); OVALOCYTES FEW; PLATELET SUFFICIENCY LOW (NORMAL); POLYCHROMASIA SLIGHT; TOTAL CELLS COUNTED 100 #CELLS
[2021-09-18 08:00] VITALS: BP 137/75
[2021-09-18 12:00] VITALS: BP 136/75
[2021-09-18 16:00] VITALS: BP 104/51
[2021-09-18 20:00] VITALS: BP 102/57; BP 121/56
[2021-09-19] VITALS: BP 97/46
[2021-09-19 07:07] LABS: BASO % 0.1 % (0.0-1.0); HEMATOCRIT 36.8 % (37.0-47.0); LYMPH # 1.9 10*3/uL (1.3-4.4); LYMPH % 11.7 % (27.0-41.0); MEAN CELL VOLUME 92.5 fl (81.0-99.0); MEAN CORPUSCULAR HGB 30.2 pg (27.0-31.0); MEAN CORPUSCULAR HGB CONC 32.6 g/dl (33.0-37.0); MEAN PLATELET VOLUME 12.6 fl (9.6-12.3); MONO # 0.6 10*3/uL (0.1-1.0); MONO % 3.4 % (3.0-9.0); NEUT # 13.6 10*3/uL (2.3-7.9); NEUT % 84.1 % (47.0-73.0); PLATELET COUNT AUTOMATED 61 10*3/uL (130-400); RED BLOOD COUNT 3.98 10*6/uL (4.10-5.10); RED CELL DISTRI WIDTH 14.3 % (0-14.5); WHITE BLOOD COUNT 16.2 10*3/uL (4.8-10.8)
[2021-09-19 08:00] VITALS: BP 143/63
[2021-09-19] MEDS ORDERED: PREDNISONE10 MG PO (14:52)
[2021-09-19 15:05] LABS: CREATININE 1.21 mg/dL (0.55-1.02)
== END 2021-09-19 15:46 | disposition home or self-care (01) | DRG 813 ==
LOC: ED 12:25 → ICCU 15:31 → EDHOLD 15:31 → ICCU 20:34
PROVIDERS: Emergency Medicine; Internal Medicine; Internal Medicine Hematology & Oncology; ADMIT Internal Medicine; ATTEND Internal Medicine
PROC: 30233R1 Transfusion of Nonautologous Platelets into Peripheral Vein, Percutaneous Approach (ICD-10-PCS; principal; 2021-09-17)
DX: D69.3 Immune thrombocytopenic purpura (principal); N17.0 Acute kidney failure with tubular necrosis; N30.01 Acute cystitis with hematuria; Z68.41 Body mass index [BMI] 40.0-44.9, adult; E87.2 Acidosis; E03.9 Hypothyroidism, unspecified; E11.65 Type 2 diabetes mellitus with hyperglycemia; K21.9 Gastro-esophageal reflux disease without esophagitis; E78.5 Hyperlipidemia, unspecified; K44.9 Diaphragmatic hernia without obstruction or gangrene; E66.01 Morbid (severe) obesity due to excess calories; R79.82 Elevated C-reactive protein (CRP); Z90.49 Acquired absence of other specified parts of digestive tract; Z88.0 Allergy status to penicillin; Z88.1 Allergy status to other antibiotic agents; Z79.899 Other long term (current) drug therapy; Z79.4 Long term (current) use of insulin; Z80.51 Family history of malignant neoplasm of kidney; Z82.49 Family history of ischemic heart disease and other diseases of the circulatory system; Z86.16 Personal history of COVID-19; Z88.8 Allergy status to other drugs, medicaments and biological substances; Z90.89 Acquired absence of other organs

== ENCOUNTER → 2021-10-08 | Outpatient (CLI) | payer SELFPAY ==
[~2021-10-08] MED LIST changes: +PREDNISONE10 MG PO
[2021-10-08 15:42] LABS: HEMATOCRIT 38.2 % (37.0-47.0); MEAN CORPUSCULAR HGB 30.1 pg (27.0-31.0); MEAN CORPUSCULAR HGB CONC 32.7 g/dl (33.0-37.0); MEAN PLATELET VOLUME 12.8 fl (9.6-12.3); RED BLOOD COUNT 4.15 10*6/uL (4.10-5.10); RED CELL DISTRI WIDTH 13.9 % (0-14.5); WHITE BLOOD COUNT 9.9 10*3/uL (4.8-10.8)
[2021-10-08 16:01] LABS: ATYPICAL LYMPHS 1 % (0-0); PLATELET SUFFICIENCY LOW (NORMAL); TOTAL CELLS COUNTED 100 #CELLS
[2021-10-08 16:56] LABS: PLATELET COUNT AUTOMATED 12 10*3/uL (130-400)
== END | disposition home or self-care (01) ==
LOC: LAB 15:24
PROVIDERS: ATTEND Hospitalist
DX: D69.6 Thrombocytopenia, unspecified (principal)

== ENCOUNTER → 2022-01-10 | Outpatient (CLI) | payer OTHER | END | disposition home or self-care (01) | LOC: RESCLI 01:29 | PROVIDERS: ATTEND Internal Medicine | DX: F33.9 Major depressive disorder, recurrent, unspecified (principal); K21.9 Gastro-esophageal reflux disease without esophagitis; E78.5 Hyperlipidemia, unspecified; I10 Essential (primary) hypertension; E11.9 Type 2 diabetes mellitus without complications; R42 Dizziness and giddiness; N39.41 Urge incontinence; E55.9 Vitamin D deficiency, unspecified; G89.29 Other chronic pain; J44.9 Chronic obstructive pulmonary disease, unspecified; J30.2 Other seasonal allergic rhinitis; E03.9 Hypothyroidism, unspecified; M13.0 Polyarthritis, unspecified; G47.33 Obstructive sleep apnea (adult) (pediatric); B49 Unspecified mycosis; R11.0 Nausea; Z90.49 Acquired absence of other specified parts of digestive tract; Z98.890 Other specified postprocedural states; Z88.0 Allergy status to penicillin; Z88.8 Allergy status to other drugs, medicaments and biological substances; Z79.899 Other long term (current) drug therapy; Z79.4 Long term (current) use of insulin ==

== ENCOUNTER → 2022-02-19 | Outpatient (CLI) | payer OTHER | END | disposition home or self-care (01) | LOC: RAD 11:23 | PROVIDERS: ATTEND Chiropractor | DX: M25.551 Pain in right hip (principal) ==

== ENCOUNTER 2022-07-13 05:33 | Emergency (ER) | payer OTHER ==
[2022-07-13 06:04] LABS: BASO # 0.1 10*3/uL (0.0-0.1); BASO % 0.6 % (0.0-1.0); EOS # 0.1 10*3/uL (0.0-0.4); EOS % 0.4 % (1.0-4.0); HEMATOCRIT 40.4 % (37.0-47.0); LYMPH # 1.5 10*3/uL (1.3-4.4); LYMPH % 13.2 % (27.0-41.0); MEAN CELL VOLUME 84.9 fl (81.0-99.0); MEAN CORPUSCULAR HGB 27.3 pg (27.0-31.0); MEAN CORPUSCULAR HGB CONC 32.2 g/dl (33.0-37.0); MEAN PLATELET VOLUME 12.9 fl (9.6-12.3); MONO # 0.6 10*3/uL (0.1-1.0); MONO % 5.7 % (3.0-9.0); NEUT % 79.6 % (47.0-73.0); PLATELET COUNT AUTOMATED 136 10*3/uL (130-400); RED BLOOD COUNT 4.76 10*6/uL (4.10-5.10); RED CELL DISTRI WIDTH 13.4 % (0-14.5); WHITE BLOOD COUNT 11.3 10*3/uL (4.8-10.8)
[2022-07-13 06:19] LABS: ALKALINE PHOSPHATASE 130 U/L (45-117); BUN 12 mg/dl (7-24); CHLORIDE 103 mmol/L (98-107); LIPASE 246 U/L (73-393); POTASSIUM 3.6 mmol/L (3.5-5.1); SGOT/AST 56 IU/L (3-35); SGPT/ALT 66 U/L (12-78); SODIUM 136 mmol/L (136-145)
[2022-07-13 06:20] LABS: ACT PARTIAL THROMBO TIME 24.3 SECONDS (20.0-32.1); TOTAL PROTEIN 7.4 gm/dL (6.4-8.2)
[2022-07-13 08:36] LABS: BILIRUBIN Negative (Negative); BLOOD Negative (Negative); CLARITY Clear (Clear); COLOR Yellow (Yellow); GLUCOSE 3+ (Negative); KETONE Trace (Negative); LEUKO ESTERASE Negative (Negative); NITRITE Negative (Negative); PH 5.5 (4.5-8.0); SPECIFIC GRAVITY 1.025 (1.001-1.030); UROBILINOGEN 0.2 E.U./dl (0.0-1.0)
[2022-07-13 08:44] LABS: BACTERIA 1+; EPITHELIAL CELLS 0-2; MUCOUS TRACE
== END 2022-07-13 09:54 | disposition home or self-care (01) ==
LOC: ED 05:33
PROVIDERS: Family Medicine
DX: K57.92 Diverticulitis of intestine, part unspecified, without perforation or abscess without bleeding (principal); Z88.0 Allergy status to penicillin; Z88.1 Allergy status to other antibiotic agents; Z88.8 Allergy status to other drugs, medicaments and biological substances; Z79.899 Other long term (current) drug therapy; Z90.49 Acquired absence of other specified parts of digestive tract; Z90.89 Acquired absence of other organs; Z98.890 Other specified postprocedural states

== ENCOUNTER → 2022-12-23 | Outpatient (CLI) | payer OTHER | END | disposition home or self-care (01) | LOC: RESCLI 02:12 | PROVIDERS: ATTEND Internal Medicine | DX: B49 Unspecified mycosis (principal); K21.9 Gastro-esophageal reflux disease without esophagitis; E11.9 Type 2 diabetes mellitus without complications; J44.9 Chronic obstructive pulmonary disease, unspecified; J30.2 Other seasonal allergic rhinitis; E03.9 Hypothyroidism, unspecified; G62.9 Polyneuropathy, unspecified; Z88.0 Allergy status to penicillin; Z88.5 Allergy status to narcotic agent; Z90.49 Acquired absence of other specified parts of digestive tract; Z98.890 Other specified postprocedural states; Z79.899 Other long term (current) drug therapy ==

== ENCOUNTER → 2024-02-25 | Outpatient (CLI) | payer OTHER | END | disposition home or self-care (01) | LOC: RESCLI 00:54 | PROVIDERS: ATTEND Internal Medicine | DX: I10 Essential (primary) hypertension (principal); E11.9 Type 2 diabetes mellitus without complications; E03.9 Hypothyroidism, unspecified; K21.9 Gastro-esophageal reflux disease without esophagitis; F32.9 Major depressive disorder, single episode, unspecified; J30.9 Allergic rhinitis, unspecified; R42 Dizziness and giddiness; J44.9 Chronic obstructive pulmonary disease, unspecified; B36.9 Superficial mycosis, unspecified; D69.3 Immune thrombocytopenic purpura; R11.0 Nausea; Z79.899 Other long term (current) drug therapy; Z88.8 Allergy status to other drugs, medicaments and biological substances; Z98.890 Other specified postprocedural states ==